=== PATIENT | female | born 1965 | race American Indian/Alaskan Native ===

== ENCOUNTER 2021-09-22 11:03 | Inpatient (IN) | payer MEDICAID ==
--- NOTE | 2021-09-23 08:50 | History and Physical Report ---
GP History & Physical - History of Present Illness Date of admission: 09/23/21 Date of Examination: 09/23/21 Reason for Admission: Danger to self, Danger to others, Failure of Outpatient Treatment Chief Complaint: Suicidal ideation/hallucinations History of Present Illness: The patient is a 56 year old female with history of schizophrenia who was admitted for agitation and suicidal ideation. In my encounter with the patient, she is loud and intrusive. The patient is pacing and responding to internal stimuli " I already know about the blue gloves, I don't hear anything, I'm just going through stuff, don't get it twisted." PAST PSYCHIATRIC HISTORY: Unable to obtain PAST MEDICAL HISTORY: None reported or document Family Psychiatric History: None reported or documented SOCIAL HISTORY Unable to obtain REVIEW OF SYSTEMS Unable to obtain MENTAL STATUS EXAMINATION Unable to obtain Diagnoses: Schizophrenia Treatment Plan Patient admitted for inpatient psychiatric evaluation, medication adjustment and close monitoring The patient's behavior, mood, sleep and appetite will be closely monitored. Patient enrolled in individual and group therapeutic sessions and encouraged to attend. Patient provided with a safe and structured environment. Patient's physical health needs will be addressed by the Hospitalist. Hospitalist Consulted Labs including CBC, CMP, Lipid profile and Hemoglobin A1C levels ordered for baseline reference Social Assessment will be completed and the Assistant Auditor will work with patient and family to ensure a suitable and safe disposition Medication adjustment will be made as clinically indicated Continue home meds Start Zyprexa 5mg po daily Start Zyprexa 10mg po QHS Usual Wellness Hoahaoism/Preservation: - Start Trazodone 50 mg po QHS & 50 mg po QHS PRN between 10 PM & 2 AM for insomnia - Start Melatonin 5 mg po QHS to promote circadian rhythm The patient agreed on the treatment plan, understood the risk, benefit, alternative treatment, potential consequence of no treatment, and gave informed consent. Estimated days: 7 Post hospital care: primary care provider, psychiatric provider Case staffed with Dr. Guillaume Legal Status: Voluntary Reaction to Hospitalization: Accepting Medications and Allergies Medications and Allergies Allergies Allergy/AdvReac Type Severity Reaction Status Date / Time codeine Allergy Unknown Verified 09/23/21 01:27 morphine Allergy Unknown Verified 09/23/21 01:28 Penicillins Allergy Unknown Verified 09/23/21 01:27 Home Medications Medication Instructions Recorded Confirmed Last Taken Type Albuterol Mdi (or & Nicu Only) 2 puff IH QID PRN 09/23/21 09/23/21 Unknown History [ProAir HFA Inhaler] AtorvaSTATin [Lipitor] 40 mg PO QHS 09/23/21 09/23/21 Unknown History Metoprolol Xl [Metoprolol 25 mg PO QDAY 09/23/21 09/23/21 Unknown History SUCCINATE ER TAB] OLANZapine [Zyprexa] 5 mg PO BID 09/23/21 09/23/21 Unknown History Pantoprazole [Protonix] 40 mg PO QDAY 09/23/21 09/23/21 Unknown History Thyroid,Porcine [Thyroid] 30 mg PO QDAY 09/23/21 09/23/21 Unknown History lisinopriL [Lisinopril] 20 mg PO DAILY 09/23/21 09/23/21 Unknown History metFORMIN [Glucophage] 500 mg PO BID 09/23/21 09/23/21 Unknown History Active Meds: Active Medications Nicotine (Nicotine 21 Mg/24 Hr Patch) 21 mg TD QDAY [facility] Results - Results Labs/Vitals: Last Vital Signs Temp 97.3 F L 09/22/21 23:54 Pulse 53 L 09/22/21 23:54 Resp 18 09/22/21 23:54 BP 134/72 09/22/21 23:54 Pulse Ox 100 09/22/21 23:54 Physical Examination - Constitutional Vitals: Vital Signs Temp Pulse Resp BP Pulse Ox 97.3 F L 53 L 18 134/72 100 09/22/21 23:54 09/22/21 23:54 09/22/21 23:54 09/22/21 23:54 09/22/21 23:54 Temperature -Last 24 Hours Temperature 97.3 F Mental Status Exam - Vital signs Last Vital Signs Temp 97.3 F L 09/22/21 23:54 Pulse 53 L 09/22/21 23:54 Resp 18 09/22/21 23:54 BP 134/72 09/22/21 23:54 Pulse Ox 100 09/22/21 23:54 Physician Certification - Certification Statement Physician Certification Statement: This is an acknowledgement statement that STEFANIA BOSS is a 56 year old F who requires inpatient psychiatric admission for treatment which could reasonably be expected to improve the patient's condition for Estimated period of time patient will need to remain in the hospital: [ ] Plan for post-hospital care: [ ]
[2021-09-23] MEDS ORDERED: ALBUTEROL 8.5 GM MDI INHALATION IH PRN (08:53)
[2021-09-23] MEDS ORDERED: WATER FOR INJ Sterile (PF) 10 ML ONE (10:00)
--- NOTE | 2021-09-23 10:31 | Consultation ---
History of Present Illness - Reason for Consult Consult date: 09/23/21 Medical management Requesting physician: ENA AYON - History of Present Illness 56 YO Female with GERD, HTN, Bipolar Disorder, Schizophrenia, FARRAH admitted to [facility] for psychiatric stabilization. Consult placed by Dr. Ayon for medical management. Patient seen and evaluated in the recreation room. Patient remains agitated. No reports of fever, chills, chest pain, palpitation, productive cough, skin rash, recent contact, known exposure to COVID-19. Patient resting comfortably. Patient exhibits tangential thinking. No reported nursing events. Past History Past Medical History: GERD, hypertension Past Surgical History: No surgical history, Other (Reviewed) Social history: single. denies: smoking, alcohol abuse, prescription drug abuse Family history: hypertension Medications and Allergies Allergies Allergy/AdvReac Type Severity Reaction Status Date / Time codeine Allergy Unknown Verified 09/23/21 01:27 morphine Allergy Unknown Verified 09/23/21 01:28 Penicillins Allergy Unknown Verified 09/23/21 01:27 Home Medications Medication Instructions Recorded Confirmed Last Taken Type Albuterol Mdi (or & Nicu Only) 2 puff IH QID PRN 09/23/21 09/23/21 Unknown History [ProAir HFA Inhaler] AtorvaSTATin [Lipitor] 40 mg PO QHS 09/23/21 09/23/21 Unknown History Metoprolol Xl [Metoprolol 25 mg PO QDAY 09/23/21 09/23/21 Unknown History SUCCINATE ER TAB] OLANZapine [Zyprexa] 5 mg PO BID 09/23/21 09/23/21 Unknown History Pantoprazole [Protonix] 40 mg PO QDAY 09/23/21 09/23/21 Unknown History Thyroid,Porcine [Thyroid] 30 mg PO QDAY 09/23/21 09/23/21 Unknown History lisinopriL [Lisinopril] 20 mg PO DAILY 09/23/21 09/23/21 Unknown History metFORMIN [Glucophage] 500 mg PO BID 09/23/21 09/23/21 Unknown History Active Meds: Active Medications Albuterol (Albuterol 2.5 Mg/3 Ml Nebu) 2.5 mg IH QIDRT [facility] Albuterol (Albuterol 2.5 Mg/3 Ml Nebu) 2.5 mg IH Q4HRT PRN PRN Reason: Shortness Of Breath Atorvastatin Calcium (Atorvastatin 40 Mg Tab) 40 mg PO QHS [facility] Lisinopril (Lisinopril 20 Mg Tab) 20 mg PO DAILY [facility] Metformin HCl (Metformin 500 Mg Tab) 500 mg PO BIDDIAB [facility] Metoprolol Succinate (Metoprolol Succinate Xl 25 Mg Tab) 25 mg PO QDAY [facility] Nicotine (Nicotine 21 Mg/24 Hr Patch) 21 mg TD QDAY [facility] Olanzapine (Olanzapine 10 Mg Tab) 10 mg PO QHS [facility] Olanzapine (Olanzapine 5 Mg Tab) 5 mg PO QDAY [facility] Pantoprazole Sodium (Pantoprazole 40 Mg Tab) 40 mg PO QDAY [facility] Thyroid (Thyroid,Porcine 60 Mg Tab) 30 mg PO QDAY [facility] Ziprasidone (Ziprasidone Mesylate 20 Mg Vial) 20 mg IM Q4H PRN PRN Reason: Agitation Review of Systems Constitutional: no weight loss, no weight gain, no fever, no chills Ears, nose, mouth and throat: no ear pain, no ear discharge, no tinnitis, no nasal discharge Breasts: no change in shape, no swelling, no mass Cardiovascular: no chest pain, no orthopnea, no palpitations, no rapid/irregular heart beat, no edema, no syncope Respiratory: no cough, no excessive sputum Gastrointestinal: no abdominal pain, no nausea, no change in bowel habits Genitourinary Female: no pelvic pain, no flank pain, no dysuria, no urinary frequency, no urgency Rectal: no pain, no incontinence, no bleeding Musculoskeletal: no neck stiffness, no shooting leg pain, no redness of joints Integumentary: no rash, no redness, no sores, no wounds, no jaundice Neurological: no head injury, no weakness, no parathesias, no numbness, no tingling Psychiatric: sleep disturbances, paranoia, depression, no anxiety Endocrine: no cold intolerance, no polyphagia, no excessive thirst, no polydipsia, no nocturia, no excessive sweating Hematologic/Lymphatic: no easy bruising, no easy bleeding Allergic/Immunologic: no urticaria, no allergic rhinitis, no wheezing, no persistent infections, no anaphylaxis Exam - Constitutional Vitals: Temp Pulse Resp BP Pulse Ox 97.3 F L 53 L 18 134/72 100 09/22/21 23:54 09/22/21 23:54 09/22/21 23:54 09/22/21 23:54 09/22/21 23:54 General appearance: Present: no acute distress, well-nourished - EENT Eyes: Present: PERRL ENT: hearing intact, clear oral mucosa - Neck Neck: Present: supple, normal ROM - Respiratory Respiratory effort: normal Respiratory: bilateral: CTA - Cardiovascular Heart Sounds: Present: S1 & S2. Absent: rub, click - Extremities Extremities: pulses symmetrical, No edema Peripheral Pulses: within normal limits - Abdominal General gastrointestinal: Present: soft, non-tender, non-distended, normal bowel sounds Female genitourinary: Present: normal - Integumentary Integumentary: Present: clear, warm, dry - Musculoskeletal Musculoskeletal: gait normal, strength equal bilaterally - Psychiatric Psychiatric: appropriate mood/affect, intact judgment & insight - Neurologic Neurologic: CNII-XII intact, moves all extremities Results - Labs CBC & Chem 7: 09/24/21 07:13 09/24/21 07:13 Assessment and Plan - Patient Problems (1) Generalized anxiety disorder Current Visit: Yes Status: Acute Plan to address problem: Benzodiazepine therapy as clinically indicated, supportive care. (2) Schizophrenia Current Visit: Yes Status: Acute Qualifiers: Schizophrenia type: unspecified Qualified Code(s): F20.9 - Schizophrenia, u nspecified Plan to address problem: Continue medical management, supportive care. (3) Hypertension Current Visit: Yes Status: Acute Qualifiers: Hypertension type: primary hypertension Qualified Code(s): I10 - Essential (primary) hypertension Plan to address problem: Monitor blood pressure every shift, continue medical management. (4) GERD (gastroesophageal reflux disease) Current Visit: Yes Status: Acute Qualifiers: Esophagitis presence: without esophagitis Qualified Code(s): K21.9 - G bijan-esophageal reflux disease without esophagitis Plan to address problem: PPI therapy, supportive care. Outpatient GI follow-up. (5) Advance care planning Current Visit: Yes Status: Acute Plan to address problem: Disease education conducted, care plan discussed, diagnoses discussed, prognosis discussed, patient is full code, +30 minutes. (6) Preventative health care Current Visit: Yes Status: Acute Plan to address problem: Patient counseled regarding cognitive behavioral therapy, medication compliance, outpatient follow-up with primary care physician for age and risk factor appropriate screening tests.
[2021-09-23] MEDS: THYROID,PORCINE 60 MG TAB PO SCH (11:00)
[2021-09-23] MEDS: PANTOPRAZOLE 40 MG TAB PO SCH (11:26)
[2021-09-23] MEDS: METOPROLOL SUCCINATE XL 25 MG TAB PO SCH (11:28)
[2021-09-23] MEDS: NICOTINE 21 MG/24 HR PATCH TD SCH (11:28)
[2021-09-23] MEDS: LISINOPRIL 20 MG TAB PO SCH (11:30)
[2021-09-23] MEDS: metFORMIN 500 MG TAB PO SCH ×2 (11:36→16:49)
[2021-09-23] MEDS: ZIPRASIDONE MESYLATE 20 MG VIAL IM PRN (11:38)
[2021-09-23] MEDS ORDERED: ALBUTEROL 2.5 MG/3 ML NEBU IH PRN (12:00)
[2021-09-23] MEDS: ALBUTEROL 2.5 MG/3 ML NEBU IH SCH ×4 (12:38→20:56)
[2021-09-24 07:53] LABS: Basophils % (Auto) 0.3 % (0.0-1.8); Eosinophils # (Auto) 0.2 K/mm3 (0.0-0.4); Eosinophils % (Auto) 1.6 % (0.0-4.3); Hematocrit 40.3 % (30.3-42.9); Hemoglobin 13.1 gm/dl (10.1-14.3); Lymphocytes # (Auto) 3.5 K/mm3 (1.2-5.4); Lymphocytes % (Auto) 33.9 % (13.4-35.0); Mean Corpuscular HGB Conc 33 % (30-34); Mean Corpuscular Volume 85 fl (79-97); Monocytes # (Auto) 0.6 K/mm3 (0.0-0.8); Monocytes % (Auto) 6.3 % (0.0-7.3); Red Blood Count 4.76 M/mm3 (3.65-5.03); Red Cell Distribution Width 13.8 % (13.2-15.2)
[2021-09-24 07:54] LABS: Platelet Count 128 K/mm3 (140-440)
[2021-09-24 08:11] LABS: Alanine Aminotransferase 18 units/L (7-56); Albumin 3.9 g/dL (3.9-5); BUN/Creatinine Ratio 25; Blood Urea Nitrogen 20 mg/dL (7-17); Calcium 9.3 mg/dL (8.4-10.2); Chol/HDL Ratio 2.05 %; HDL Cholesterol 68 mg/dL (40-59); Hemolysis Index 8; LDL Cholesterol,Direct 53 mg/dL (50-130)
[2021-09-24] MEDS: metFORMIN 500 MG TAB PO SCH ×2 (08:16→16:16)
[2021-09-24] MEDS: ALBUTEROL 2.5 MG/3 ML NEBU IH SCH ×3 (08:50→20:04)
[2021-09-24] MEDS: NICOTINE 21 MG/24 HR PATCH TD SCH (09:50)
[2021-09-24] MEDS: PANTOPRAZOLE 40 MG TAB PO SCH (09:50)
--- NOTE | 2021-09-24 09:59 | Progress Note ---
Subjective Date of service: 09/24/21 Subjective Comment: 09/24: The patient was seen this morning. The patient continues to be disorganized and responding to internal stimuli. No changes made today. REVIEW OF SYSTEMS Unable to obtain MENTAL STATUS EXAMINATION Unable to obtain Diagnoses: Schizophrenia Treatment Plan Patient admitted for inpatient psychiatric evaluation, medication adjustment and close monitoring The patient's behavior, mood, sleep and appetite will be closely monitored. Patient enrolled in individual and group therapeutic sessions and encouraged to attend. Patient provided with a safe and structured environment. Patient's physical health needs will be addressed by the Hospitalist. Hospitalist Consulted Labs including CBC, CMP, Lipid profile and Hemoglobin A1C levels ordered for baseline reference Social Assessment will be completed and the Software Integration Developer will work with patient and family to ensure a suitable and safe disposition Medication adjustment will be made as clinically indicated Continue home meds Start Zyprexa 5mg po daily Start Zyprexa 10mg po QHS Usual Wellness Holiness/Preservation: - Start Trazodone 50 mg po QHS & 50 mg po QHS PRN between 10 PM & 2 AM for insomnia - Start Melatonin 5 mg po QHS to promote circadian rhythm The patient agreed on the treatment plan, understood the risk, benefit, alternative treatment, potential consequence of no treatment, and gave informed consent. Estimated days: 7 Post hospital care: primary care provider, psychiatric provider Case staffed with Dr. Guillaume Legal Status: Voluntary Reaction to Hospitalization: Accepting Medications and Allergies Medications and Allergies Allergies Allergy/AdvReac Type Severity Reaction Status Date / Time codeine Allergy Unknown Verified 09/23/21 01:27 morphine Allergy Unknown Verified 09/23/21 01:28 Penicillins Allergy Unknown Verified 09/23/21 01:27 Home Medications Medication Instructions Recorded Confirmed Last Taken Type Albuterol Mdi (or & Nicu Only) 2 puff IH QID PRN 09/23/21 09/23/21 Unknown History [ProAir HFA Inhaler] AtorvaSTATin [Lipitor] 40 mg PO QHS 09/23/21 09/23/21 Unknown History Metoprolol Xl [Metoprolol 25 mg PO QDAY 09/23/21 09/23/21 Unknown History SUCCINATE ER TAB] OLANZapine [Zyprexa] 5 mg PO BID 09/23/21 09/23/21 Unknown History Pantoprazole [Protonix] 40 mg PO QDAY 09/23/21 09/23/21 Unknown History Thyroid,Porcine [Thyroid] 30 mg PO QDAY 09/23/21 09/23/21 Unknown History lisinopriL [Lisinopril] 20 mg PO DAILY 09/23/21 09/23/21 Unknown History metFORMIN [Glucophage] 500 mg PO BID 09/23/21 09/23/21 Unknown History Active Meds: Active Medications Albuterol (Albuterol 2.5 Mg/3 Ml Nebu) 2.5 mg IH Q4HRT PRN PRN Reason: Shortness Of Breath Albuterol (Albuterol 2.5 Mg/3 Ml Nebu) 2.5 mg IH TIDRT [facility] Atorvastatin Calcium (Atorvastatin 40 Mg Tab) 40 mg PO QHS [facility] Last Admin: 09/23/21 21:06 Dose: 40 mg Lisinopril (Lisinopril 20 Mg Tab) 20 mg PO DAILY [facility] Last Admin: 09/23/21 11:30 Dose: Not Given Metformin HCl (Metformin 500 Mg Tab) 500 mg PO BIDDIAB [facility] Last Admin: 09/24/21 08:16 Dose: Not Given Metoprolol Succinate (Metoprolol Succinate Xl 25 Mg Tab) 25 mg PO QDAY [facility] Last Admin: 09/23/21 11:28 Dose: Not Given Nicotine (Nicotine 21 Mg/24 Hr Patch) 21 mg TD QDAY [facility] Last Admin: 09/24/21 09:50 Dose: 21 mg Olanzapine (Olanzapine 10 Mg Tab) 10 mg PO QHS [facility] Last Admin: 09/23/21 21:06 Dose: 10 mg Olanzapine (Olanzapine 5 Mg Tab) 5 mg PO QDAY [facility] Last Admin: 09/24/21 09:50 Dose: 5 mg Pantoprazole Sodium (Pantoprazole 40 Mg Tab) 40 mg PO QDAY [facility] Last Admin: 09/24/21 09:50 Dose: 40 mg Thyroid (Thyroid,Porcine 60 Mg Tab) 30 mg PO QDAY [facility] Last Admin: 09/23/21 11:00 Dose: 30 mg Ziprasidone (Ziprasidone Mesylate 20 Mg Vial) 20 mg IM Q4H PRN PRN Reason: Agitation Last Admin: 09/23/21 11:38 Dose: 20 mg Results - Results Labs/Vitals: Laboratory Last Values WBC 10.2 K/mm3 (4.5-11.0) 09/24/21 07:13 RBC 4.76 M/mm3 (3.65-5.03) 09/24/21 07:13 Hgb 13.1 gm/dl (10.1-14.3) 09/24/21 07:13 Hct 40.3 % (30.3-42.9) 09/24/21 07:13 MCV 85 fl (79-97) 09/24/21 07:13 MCH 28 pg (28-32) 09/24/21 07:13 MCHC 33 % (30-34) 09/24/21 07:13 RDW 13.8 % (13.2-15.2) 09/24/21 07:13 Plt Count 128 K/mm3 (140-440) L 09/24/21 07:13 Lymph % (Auto) 33.9 % (13.4-35.0) 09/24/21 07:13 [place] % (Auto) 6.3 % (0.0-7.3) 09/24/21 07:13 Eos % (Auto) 1.6 % (0.0-4.3) 09/24/21 07:13 Baso % (Auto) 0.3 % (0.0-1.8) 09/24/21 07:13 Lymph # (Auto) 3.5 K/mm3 (1.2-5.4) 09/24/21 07:13 [place] # (Auto) 0.6 K/mm3 (0.0-0.8) 09/24/21 07:13 Eos # (Auto) 0.2 K/mm3 (0.0-0.4) 09/24/21 07:13 Baso # (Auto) 0.0 K/mm3 (0.0-0.1) 09/24/21 07:13 Seg Neutrophils % 57.9 % (40.0-70.0) 09/24/21 07:13 Seg Neutrophils # 5.9 K/mm3 (1.8-7.7) 09/24/21 07:13 Sodium 139 mmol/L (137-145) 09/24/21 07:13 Potassium 4.5 mmol/L (3.6-5.0) 09/24/21 07:13 Chloride 105.7 mmol/L (98-107) 09/24/21 07:13 Carbon Dioxide 26 mmol/L (22-30) 09/24/21 07:13 Anion Gap 12 mmol/L 09/24/21 07:13 BUN 20 mg/dL (7-17) H 09/24/21 07:13 Creatinine 0.8 mg/dL (0.6-1.2) 09/24/21 07:13 Estimated GFR > 60 ml/min 09/24/21 07:13 BUN/Creatinine Ratio 25 % 09/24/21 07:13 Glucose 84 mg/dL (65-100) 09/24/21 07:13 Hemoglobin A1c 5.3 % (4-6) 09/24/21 07:13 Calcium 9.3 mg/dL (8.4-10.2) 09/24/21 07:13 Total Bilirubin < 0.20 mg/dL (0.1-1.2) 09/24/21 07:13 AST 17 units/L (5-40) 09/24/21 07:13 ALT 18 units/L (7-56) 09/24/21 07:13 Alkaline Phosphatase 119 units/L (35-129) 09/24/21 07:13 Total Protein 6.1 g/dL (6.3-8.2) L 09/24/21 07:13 Albumin 3.9 g/dL (3.9-5) 09/24/21 07:13 Albumin/Globulin Ratio 1.8 % 09/24/21 07:13 Triglycerides 117 mg/dL (2-149) 09/24/21 07:13 Cholesterol 140 mg/dL (50-199) 09/24/21 07:13 LDL Cholesterol Direct 53 mg/dL (50-130) 09/24/21 07:13 HDL Cholesterol 68 mg/dL (40-59) H 09/24/21 07:13 Cholesterol/HDL Ratio 2.05 % 09/24/21 07:13 TSH 0.751 mlU/mL (0.270-4.200) 09/24/21 07:13 Last Vital Signs Temp 97.5 F L 09/24/21 09:25 Pulse 75 09/24/21 09:25 Resp 16 09/24/21 09:25 BP 119/71 09/24/21 09:25 Pulse Ox 99 09/24/21 09:25
[2021-09-24] MEDS: THYROID,PORCINE 60 MG TAB PO SCH (10:16)
[2021-09-24] MEDS: METOPROLOL SUCCINATE XL 25 MG TAB PO SCH (10:16)
[2021-09-24] MEDS: LISINOPRIL 20 MG TAB PO SCH (10:16)
[2021-09-24 12:27] LABS: Hepatitis B Surface Antigen Non-Reactive (Negative); Hepatitis C Virus Antibody Non-Reactive (NonReactive)
--- NOTE | 2021-09-25 08:54 | Progress Note ---
Subjective Date of service: 09/25/21 Subjective Comment: 09/25: The patient was seen this morning. She states she is doing well. The patient continues to be disorganized and responding to internal stimuli. Increased Zyprexa 10mg po BID, Start Depakote 250mg po BID 09/24: The patient was seen this morning. The patient continues to be disorganized and responding to internal stimuli. No changes made today. REVIEW OF SYSTEMS Unable to obtain MENTAL STATUS EXAMINATION Unable to obtain Diagnoses: Schizophrenia Treatment Plan Patient admitted for inpatient psychiatric evaluation, medication adjustment and close monitoring The patient's behavior, mood, sleep and appetite will be closely monitored. Patient enrolled in individual and group therapeutic sessions and encouraged to attend. Patient provided with a safe and structured environment. Patient's physical health needs will be addressed by the Hospitalist. Hospitalist Consulted Labs including CBC, CMP, Lipid profile and Hemoglobin A1C levels ordered for baseline reference Social Assessment will be completed and the Aluminum Container Tester will work with patient and family to ensure a suitable and safe disposition Medication adjustment will be made as clinically indicated Continue home meds Start Zyprexa 10mg po BID Start Depakote 250mg po BID Usual Wellness Sabianist/Preservation: - Start Trazodone 50 mg po QHS & 50 mg po QHS PRN between 10 PM & 2 AM for insomnia - Start Melatonin 5 mg po QHS to promote circadian rhythm The patient agreed on the treatment plan, understood the risk, benefit, alternative treatment, potential consequence of no treatment, and gave informed consent. Estimated days: 7 Post hospital care: primary care provider, psychiatric provider Case staffed with Dr. Guillaume Legal Status: Voluntary Reaction to Hospitalization: Accepting Medications and Allergies Medications and Allergies Allergies Allergy/AdvReac Type Severity Reaction Status Date / Time codeine Allergy Unknown Verified 09/23/21 01:27 morphine Allergy Unknown Verified 09/23/21 01:28 Penicillins Allergy Unknown Verified 09/23/21 01:27 Home Medications Medication Instructions Recorded Confirmed Last Taken Type Albuterol Mdi (or & Nicu Only) 2 puff IH QID PRN 09/23/21 09/23/21 Unknown History [ProAir HFA Inhaler] AtorvaSTATin [Lipitor] 40 mg PO QHS 09/23/21 09/23/21 Unknown History Metoprolol Xl [Metoprolol 25 mg PO QDAY 09/23/21 09/23/21 Unknown History SUCCINATE ER TAB] OLANZapine [Zyprexa] 5 mg PO BID 09/23/21 09/23/21 Unknown History Pantoprazole [Protonix] 40 mg PO QDAY 09/23/21 09/23/21 Unknown History Thyroid,Porcine [Thyroid] 30 mg PO QDAY 09/23/21 09/23/21 Unknown History lisinopriL [Lisinopril] 20 mg PO DAILY 09/23/21 09/23/21 Unknown History metFORMIN [Glucophage] 500 mg PO BID 09/23/21 09/23/21 Unknown History Active Meds: Active Medications Albuterol (Albuterol 2.5 Mg/3 Ml Nebu) 2.5 mg IH Q4HRT PRN PRN Reason: Shortness Of Breath Albuterol (Albuterol 2.5 Mg/3 Ml Nebu) 2.5 mg IH TIDRT [facility] Last Admin: 09/24/21 20:04 Dose: Not Given Atorvastatin Calcium (Atorvastatin 40 Mg Tab) 40 mg PO QHS [facility] Last Admin: 09/24/21 22:55 Dose: Not Given Lisinopril (Lisinopril 20 Mg Tab) 20 mg PO DAILY [facility] Last Admin: 09/24/21 10:16 Dose: Not Given Metformin HCl (Metformin 500 Mg Tab) 500 mg PO BIDDIAB [facility] Last Admin: 09/24/21 16:16 Dose: Not Given Metoprolol Succinate (Metoprolol Succinate Xl 25 Mg Tab) 25 mg PO QDAY [facility] Last Admin: 09/24/21 10:16 Dose: Not Given Nicotine (Nicotine 21 Mg/24 Hr Patch) 21 mg TD QDAY [facility] Last Admin: 09/24/21 09:50 Dose: 21 mg Olanzapine (Olanzapine 10 Mg Tab) 10 mg PO QHS [facility] Last Admin: 09/24/21 22:55 Dose: Not Given Olanzapine (Olanzapine 5 Mg Tab) 5 mg PO QDAY [facility] Last Admin: 09/24/21 09:50 Dose: 5 mg Pantoprazole Sodium (Pantoprazole 40 Mg Tab) 40 mg PO QDAY [facility] Last Admin: 09/24/21 09:50 Dose: 40 mg Thyroid (Thyroid,Porcine 60 Mg Tab) 30 mg PO QDAY [facility] Last Admin: 09/24/21 10:16 Dose: Not Given Ziprasidone (Ziprasidone Mesylate 20 Mg Vial) 20 mg IM Q4H PRN PRN Reason: Agitation Last Admin: 09/23/21 11:38 Dose: 20 mg Results - Results Labs/Vitals: Laboratory Last Values WBC 10.2 K/mm3 (4.5-11.0) 09/24/21 07:13 RBC 4.76 M/mm3 (3.65-5.03) 09/24/21 07:13 Hgb 13.1 gm/dl (10.1-14.3) 09/24/21 07:13 Hct 40.3 % (30.3-42.9) 09/24/21 07:13 MCV 85 fl (79-97) 09/24/21 07:13 MCH 28 pg (28-32) 09/24/21 07:13 MCHC 33 % (30-34) 09/24/21 07:13 RDW 13.8 % (13.2-15.2) 09/24/21 07:13 Plt Count 128 K/mm3 (140-440) L 09/24/21 07:13 Lymph % (Auto) 33.9 % (13.4-35.0) 09/24/21 07:13 [place] % (Auto) 6.3 % (0.0-7.3) 09/24/21 07:13 Eos % (Auto) 1.6 % (0.0-4.3) 09/24/21 07:13 Baso % (Auto) 0.3 % (0.0-1.8) 09/24/21 07:13 Lymph # (Auto) 3.5 K/mm3 (1.2-5.4) 09/24/21 07:13 [place] # (Auto) 0.6 K/mm3 (0.0-0.8) 09/24/21 07:13 Eos # (Auto) 0.2 K/mm3 (0.0-0.4) 09/24/21 07:13 Baso # (Auto) 0.0 K/mm3 (0.0-0.1) 09/24/21 07:13 Seg Neutrophils % 57.9 % (40.0-70.0) 09/24/21 07:13 Seg Neutrophils # 5.9 K/mm3 (1.8-7.7) 09/24/21 07:13 Sodium 139 mmol/L (137-145) 09/24/21 07:13 Potassium 4.5 mmol/L (3.6-5.0) 09/24/21 07:13 Chloride 105.7 mmol/L (98-107) 09/24/21 07:13 Carbon Dioxide 26 mmol/L (22-30) 09/24/21 07:13 Anion Gap 12 mmol/L 09/24/21 07:13 BUN 20 mg/dL (7-17) H 09/24/21 07:13 Creatinine 0.8 mg/dL (0.6-1.2) 09/24/21 07:13 Estimated GFR > 60 ml/min 09/24/21 07:13 BUN/Creatinine Ratio 25 % 09/24/21 07:13 Glucose 84 mg/dL (65-100) 09/24/21 07:13 POC Glucose 102 mg/dL (70-105) 09/24/21 06:42 Hemoglobin A1c 5.3 % (4-6) 09/24/21 07:13 Calcium 9.3 mg/dL (8.4-10.2) 09/24/21 07:13 Total Bilirubin < 0.20 mg/dL (0.1-1.2) 09/24/21 07:13 AST 17 units/L (5-40) 09/24/21 07:13 ALT 18 units/L (7-56) 09/24/21 07:13 Alkaline Phosphatase 119 units/L (35-129) 09/24/21 07:13 Total Protein 6.1 g/dL (6.3-8.2) L 09/24/21 07:13 Albumin 3.9 g/dL (3.9-5) 09/24/21 07:13 Albumin/Globulin Ratio 1.8 % 09/24/21 07:13 Triglycerides 117 mg/dL (2-149) 09/24/21 07:13 Cholesterol 140 mg/dL (50-199) 09/24/21 07:13 LDL Cholesterol Direct 53 mg/dL (50-130) 09/24/21 07:13 HDL Cholesterol 68 mg/dL (40-59) H 09/24/21 07:13 Cholesterol/HDL Ratio 2.05 % 09/24/21 07:13 TSH 0.751 mlU/mL (0.270-4.200) 09/24/21 07:13 Hepatitis A IgM Ab Non-reactive (NonReactive) 09/24/21 07:13 Hep Bs Antigen Non-reactive (Negative) 09/24/21 07:13 Hep B Core IgM Ab Non-reactive (NonReactive) 09/24/21 07:13 Hepatitis C Antibody Non-reactive (NonReactive) 09/24/21 07:13 Last Vital Signs Temp 98.6 F 09/24/21 19:00 Pulse 84 09/24/21 19:00 Resp 18 09/24/21 19:00 BP 129/87 09/24/21 19:00 Pulse Ox 92 09/24/21 19:00
[2021-09-25] MEDS: ALBUTEROL 2.5 MG/3 ML NEBU IH SCH ×4 (10:24→21:07)
[2021-09-25] MEDS: NICOTINE 21 MG/24 HR PATCH TD SCH (10:54)
[2021-09-25] MEDS: LISINOPRIL 20 MG TAB PO SCH (10:56)
[2021-09-25] MEDS: metFORMIN 500 MG TAB PO SCH ×2 (11:01→18:19)
[2021-09-25] MEDS: PANTOPRAZOLE 40 MG TAB PO SCH (11:02)
[2021-09-25] MEDS: THYROID,PORCINE 60 MG TAB PO SCH (11:03)
[2021-09-25] MEDS: METOPROLOL SUCCINATE XL 25 MG TAB PO SCH (11:04)
--- NOTE | 2021-09-25 12:40 | Progress Note ---
Assessment and Plan - Patient Problems (1) Generalized anxiety disorder Current Visit: Yes Status: Acute Plan to address problem: Benzodiazepine therapy as clinically indicated, supportive care. (2) Schizophrenia Current Visit: Yes Status: Acute Qualifiers: Schizophrenia type: unspecified Qualified Code(s): F20.9 - Schizophrenia, unspecified Plan to address problem: Continue medical management, supportive care. (3) Hypertension Current Visit: Yes Status: Acute Qualifiers: Hypertension type: primary hypertension Qualified Code(s): I10 - Essential (primary) hypertension Plan to address problem: Monitor blood pressure every shift, continue medical management. (4) GERD (gastroesophageal reflux disease) Current Visit: Yes Status: Acute Qualifiers: Esophagitis presence: without esophagitis Qualified Code(s): K21.9 - Gastro-esophageal reflux disease without esophagitis Plan to address problem: PPI therapy, supportive care. Outpatient GI follow-up. (5) Advance care planning Current Visit: Yes Status: Acute Plan to address problem: Disease education conducted, care plan discussed, diagnoses discussed, prognosis discussed, patient is full code, +30 minutes. (6) Preventative health care Current Visit: Yes Status: Acute Plan to address problem: Patient counseled regarding cognitive behavioral therapy, medication compliance, outpatient follow-up with primary care physician for age and risk factor appropriate screening tests. History Interval history: 56 YO Female with GERD, HTN, Bipolar Disorder, Schizophrenia, FARRAH admitted to [facility] for psychiatric stabilization. Consult placed by Dr. Arredondo for medical management. Patient seen and evaluated in the recreation room. Patient exhibits continued tangential thinking. No reported nursing events. Hospitalist Physical - Constitutional Vitals: Temp Pulse Resp BP Pulse Ox 98.6 F 90 18 129/87 92 09/24/21 19:00 09/25/21 11:04 09/25/21 10:25 09/24/21 19:00 09/24/21 19:00 General appearance: Present: no acute distress, well-nourished - EENT Eyes: Present: PERRL ENT: hearing intact - Neck Neck: Present: supple - Respiratory Respiratory effort: normal Respiratory: bilateral: CTA - Cardiovascular Rhythm: regular Heart Sounds: Present: S1 & S2 - Extremities Extremities: no ischemia Peripheral Pulses: within normal limits - Abdominal General gastrointestinal: soft, non-tender, non-distended - Integumentary Integumentary: Present: clear, dry - Psychiatric Psychiatric: cooperative - Neurologic Neurologic: CNII-XII intact Results - Labs CBC & Chem 7: 09/24/21 07:13 09/24/21 07:13 Labs: Laboratory Last Values WBC 10.2 K/mm3 (4.5-11.0) 09/24/21 07:13 RBC 4.76 M/mm3 (3.65-5.03) 09/24/21 07:13 Hgb 13.1 gm/dl (10.1-14.3) 09/24/21 07:13 Hct 40.3 % (30.3-42.9) 09/24/21 07:13 MCV 85 fl (79-97) 09/24/21 07:13 MCH 28 pg (28-32) 09/24/21 07:13 MCHC 33 % (30-34) 09/24/21 07:13 RDW 13.8 % (13.2-15.2) 09/24/21 07:13 Plt Count 128 K/mm3 (140-440) L 09/24/21 07:13 Lymph % (Auto) 33.9 % (13.4-35.0) 09/24/21 07:13 [place] % (Auto) 6.3 % (0.0-7.3) 09/24/21 07:13 Eos % (Auto) 1.6 % (0.0-4.3) 09/24/21 07:13 Baso % (Auto) 0.3 % (0.0-1.8) 09/24/21 07:13 Lymph # (Auto) 3.5 K/mm3 (1.2-5.4) 09/24/21 07:13 [place] # (Auto) 0.6 K/mm3 (0.0-0.8) 09/24/21 07:13 Eos # (Auto) 0.2 K/mm3 (0.0-0.4) 09/24/21 07:13 Baso # (Auto) 0.0 K/mm3 (0.0-0.1) 09/24/21 07:13 Seg Neutrophils % 57.9 % (40.0-70.0) 09/24/21 07:13 Seg Neutrophils # 5.9 K/mm3 (1.8-7.7) 09/24/21 07:13 Sodium 139 mmol/L (137-145) 09/24/21 07:13 Potassium 4.5 mmol/L (3.6-5.0) 09/24/21 07:13 Chloride 105.7 mmol/L (98-107) 09/24/21 07:13 Carbon Dioxide 26 mmol/L (22-30) 09/24/21 07:13 Anion Gap 12 mmol/L 09/24/21 07:13 BUN 20 mg/dL (7-17) H 09/24/21 07:13 Creatinine 0.8 mg/dL (0.6-1.2) 09/24/21 07:13 Estimated GFR > 60 ml/min 09/24/21 07:13 BUN/Creatinine Ratio 25 % 09/24/21 07:13 Glucose 84 mg/dL (65-100) 09/24/21 07:13 POC Glucose 102 mg/dL (70-105) 09/24/21 06:42 Hemoglobin A1c 5.3 % (4-6) 09/24/21 07:13 Calcium 9.3 mg/dL (8.4-10.2) 09/24/21 07:13 Total Bilirubin < 0.20 mg/dL (0.1-1.2) 09/24/21 07:13 AST 17 units/L (5-40) 09/24/21 07:13 ALT 18 units/L (7-56) 09/24/21 07:13 Alkaline Phosphatase 119 units/L (35-129) 09/24/21 07:13 Total Protein 6.1 g/dL (6.3-8.2) L 09/24/21 07:13 Albumin 3.9 g/dL (3.9-5) 09/24/21 07:13 Albumin/Globulin Ratio 1.8 % 09/24/21 07:13 Triglycerides 117 mg/dL (2-149) 09/24/21 07:13 Cholesterol 140 mg/dL (50-199) 09/24/21 07:13 LDL Cholesterol Direct 53 mg/dL (50-130) 09/24/21 07:13 HDL Cholesterol 68 mg/dL (40-59) H 09/24/21 07:13 Cholesterol/HDL Ratio 2.05 % 09/24/21 07:13 TSH 0.751 mlU/mL (0.270-4.200) 09/24/21 07:13 Hepatitis A IgM Ab Non-reactive (NonReactive) 09/24/21 07:13 Hep Bs Antigen Non-reactive (Negative) 09/24/21 07:13 Hep B Core IgM Ab Non-reactive (NonReactive) 09/24/21 07:13 Hepatitis C Antibody Non-reactive (NonReactive) 09/24/21 07:13 Wright/IV: Voiding Method Toilet Active Medications - Current Medications Current Medications: Generic Name Dose Route Start Last Admin Trade Name Freq PRN Reason Stop Dose Admin Albuterol 2.5 mg 09/23/21 12:00 Albuterol 2.5 Mg/3 Ml Nebu IH Q4HRT PRN Shortness Of Breath Albuterol 2.5 mg 09/25/21 12:00 09/25/21 10:24 Albuterol 2.5 Mg/3 Ml Nebu IH 2.5 mg BIDRT ALYSSIA Administration Atorvastatin Calcium 40 mg 09/23/21 22:00 09/24/21 22:55 Atorvastatin 40 Mg Tab PO Not Given QHS ALYSSIA Divalproex Sodium 250 mg 09/25/21 12:[address] 250 Mg Tab PO BID ALYSSIA Lisinopril 20 mg 09/23/21 10:00 09/25/21 10:56 Lisinopril 20 Mg Tab PO 20 mg DAILY ALYSSIA Administration Metformin HCl 500 mg 09/23/21 10:00 09/25/21 11:01 Metformin 500 Mg Tab PO 500 mg BIDDIAB ALYSSIA Administration Metoprolol Succinate 25 mg 09/23/21 10:00 09/25/21 11:04 Metoprolol Succinate Xl 25 Mg Tab PO 25 mg QDAY ALYSSIA Administration Nicotine 21 mg 09/23/21 10:00 09/25/21 10:54 Nicotine 21 Mg/24 Hr Patch TD 21 mg QDAY ALYSSIA Administration Olanzapine 10 mg 09/25/21 12:00 Olanzapine 10 Mg Tab PO BID ALYSSIA Pantoprazole Sodium 40 mg 09/23/21 10:00 09/25/21 11:02 Pantoprazole 40 Mg Tab PO 40 mg QDAY ALYSSIA Administration Thyroid 30 mg 09/23/21 10:00 09/25/21 11:03 Thyroid,Porcine 60 Mg Tab PO 30 mg QDAY ALYSSIA Administration Ziprasidone 20 mg 09/23/21 09:30 09/23/21 11:38 Ziprasidone Mesylate 20 Mg Vial IM 20 mg Q4H PRN Administration Agitation
[2021-09-25] MEDS: DIVALPROEX DR 250 MG TAB PO SCH ×2 (18:19→21:53)
[2021-09-26] MEDS: ALBUTEROL 2.5 MG/3 ML NEBU IH SCH (08:31)
[2021-09-26] MEDS: PANTOPRAZOLE 40 MG TAB PO SCH (09:32)
[2021-09-26] MEDS: DIVALPROEX DR 250 MG TAB PO SCH ×2 (09:32→22:12)
[2021-09-26] MEDS: metFORMIN 500 MG TAB PO SCH ×2 (09:32→16:24)
[2021-09-26] MEDS: METOPROLOL SUCCINATE XL 25 MG TAB PO SCH (09:34)
[2021-09-26] MEDS: NICOTINE 21 MG/24 HR PATCH TD SCH (09:34)
[2021-09-26] MEDS: LISINOPRIL 20 MG TAB PO SCH (09:35)
[2021-09-26] MEDS: THYROID,PORCINE 60 MG TAB PO SCH (09:35)
--- NOTE | 2021-09-26 09:36 | Progress Note ---
Subjective Date of service: 09/26/21 Subjective Comment: 09/26: The patient was seen this morning. She continues to be labile and loud. The patient presents with flight of ideas. No changes made today. 09/25: The patient was seen this morning. She states she is doing well. The patient continues to be disorganized and responding to internal stimuli. Increased Zyprexa 10mg po BID, Start Depakote 250mg po BID 09/24: The patient was seen this morning. The patient continues to be disorganized and responding to internal stimuli. No changes made today. REVIEW OF SYSTEMS Unable to obtain MENTAL STATUS EXAMINATION Unable to obtain Diagnoses: Schizophrenia Treatment Plan Patient admitted for inpatient psychiatric evaluation, medication adjustment and close monitoring The patient's behavior, mood, sleep and appetite will be closely monitored. Patient enrolled in individual and group therapeutic sessions and encouraged to attend. Patient provided with a safe and structured environment. Patient's physical health needs will be addressed by the Hospitalist. Hospitalist Consulted Labs including CBC, CMP, Lipid profile and Hemoglobin A1C levels ordered for baseline reference Social Assessment will be completed and the [facility] will work with patient and family to ensure a suitable and safe disposition Medication adjustment will be made as clinically indicated Continue home meds Start Zyprexa 10mg po BID Start Depakote 250mg po BID Usual Wellness Druze/Preservation: - Start Trazodone 50 mg po QHS & 50 mg po QHS PRN between 10 PM & 2 AM for insomnia - Start Melatonin 5 mg po QHS to promote circadian rhythm The patient agreed on the treatment plan, understood the risk, benefit, alternative treatment, potential consequence of no treatment, and gave informed consent. Estimated days: 7 Post hospital care: primary care provider, psychiatric provider Case staffed with Dr. Guillaume Legal Status: Voluntary Reaction to Hospitalization: Accepting Medications and Allergies Medications and Allergies Allergies Allergy/AdvReac Type Severity Reaction Status Date / Time codeine Allergy Unknown Verified 09/23/21 01:27 morphine Allergy Unknown Verified 09/23/21 01:28 Penicillins Allergy Unknown Verified 09/23/21 01:27 Home Medications Medication Instructions Recorded Confirmed Last Taken Type Albuterol Mdi (or & Nicu Only) 2 puff IH QID PRN 09/23/21 09/23/21 Unknown History [ProAir HFA Inhaler] AtorvaSTATin [Lipitor] 40 mg PO QHS 09/23/21 09/23/21 Unknown History Metoprolol Xl [Metoprolol 25 mg PO QDAY 09/23/21 09/23/21 Unknown History SUCCINATE ER TAB] OLANZapine [Zyprexa] 5 mg PO BID 09/23/21 09/23/21 Unknown History Pantoprazole [Protonix] 40 mg PO QDAY 09/23/21 09/23/21 Unknown History Thyroid,Porcine [Thyroid] 30 mg PO QDAY 09/23/21 09/23/21 Unknown History lisinopriL [Lisinopril] 20 mg PO DAILY 09/23/21 09/23/21 Unknown History metFORMIN [Glucophage] 500 mg PO BID 09/23/21 09/23/21 Unknown History Active Meds: Active Medications Albuterol (Albuterol 2.5 Mg/3 Ml Nebu) 2.5 mg IH Q4HRT PRN PRN Reason: Shortness Of Breath Albuterol (Albuterol 2.5 Mg/3 Ml Nebu) 2.5 mg IH BIDRT [facility] Last Admin: 09/26/21 08:31 Dose: 2.5 mg Atorvastatin Calcium (Atorvastatin 40 Mg Tab) 40 mg PO QHS [facility] Last Admin: 09/25/21 21:53 Dose: 40 mg Divalproex Sodium (Divalproex Dr 250 Mg Tab) 250 mg PO BID [facility] Last Admin: 09/25/21 21:53 Dose: 250 mg Lisinopril (Lisinopril 20 Mg Tab) 20 mg PO DAILY [facility] Last Admin: 09/25/21 10:56 Dose: 20 mg Metformin HCl (Metformin 500 Mg Tab) 500 mg PO BIDDIAB [facility] Last Admin: 09/25/21 18:19 Dose: 500 mg Metoprolol Succinate (Metoprolol Succinate Xl 25 Mg Tab) 25 mg PO QDAY [facility] Last Admin: 09/25/21 11:04 Dose: 25 mg Nicotine (Nicotine 21 Mg/24 Hr Patch) 21 mg TD QDAY [facility] Last Admin: 09/25/21 10:54 Dose: 21 mg Olanzapine (Olanzapine 10 Mg Tab) 10 mg PO BID [facility] Last Admin: 09/25/21 21:53 Dose: 10 mg Pantoprazole Sodium (Pantoprazole 40 Mg Tab) 40 mg PO QDAY [facility] Last Admin: 09/25/21 11:02 Dose: 40 mg Thyroid (Thyroid,Porcine 60 Mg Tab) 30 mg PO QDAY [facility] Last Admin: 09/25/21 11:03 Dose: 30 mg Ziprasidone (Ziprasidone Mesylate 20 Mg Vial) 20 mg IM Q4H PRN PRN Reason: Agitation Last Admin: 09/23/21 11:38 Dose: 20 mg Results - Results Labs/Vitals: Laboratory Last Values WBC 10.2 K/mm3 (4.5-11.0) 09/24/21 07:13 RBC 4.76 M/mm3 (3.65-5.03) 09/24/21 07:13 Hgb 13.1 gm/dl (10.1-14.3) 09/24/21 07:13 Hct 40.3 % (30.3-42.9) 09/24/21 07:13 MCV 85 fl (79-97) 09/24/21 07:13 MCH 28 pg (28-32) 09/24/21 07:13 MCHC 33 % (30-34) 09/24/21 07:13 RDW 13.8 % (13.2-15.2) 09/24/21 07:13 Plt Count 128 K/mm3 (140-440) L 09/24/21 07:13 Lymph % (Auto) 33.9 % (13.4-35.0) 09/24/21 07:13 [place] % (Auto) 6.3 % (0.0-7.3) 09/24/21 07:13 Eos % (Auto) 1.6 % (0.0-4.3) 09/24/21 07:13 Baso % (Auto) 0.3 % (0.0-1.8) 09/24/21 07:13 Lymph # (Auto) 3.5 K/mm3 (1.2-5.4) 09/24/21 07:13 [place] # (Auto) 0.6 K/mm3 (0.0-0.8) 09/24/21 07:13 Eos # (Auto) 0.2 K/mm3 (0.0-0.4) 09/24/21 07:13 Baso # (Auto) 0.0 K/mm3 (0.0-0.1) 09/24/21 07:13 Seg Neutrophils % 57.9 % (40.0-70.0) 09/24/21 07:13 Seg Neutrophils # 5.9 K/mm3 (1.8-7.7) 09/24/21 07:13 Sodium 139 mmol/L (137-145) 09/24/21 07:13 Potassium 4.5 mmol/L (3.6-5.0) 09/24/21 07:13 Chloride 105.7 mmol/L (98-107) 09/24/21 07:13 Carbon Dioxide 26 mmol/L (22-30) 09/24/21 07:13 Anion Gap 12 mmol/L 09/24/21 07:13 BUN 20 mg/dL (7-17) H 09/24/21 07:13 Creatinine 0.8 mg/dL (0.6-1.2) 09/24/21 07:13 Estimated GFR > 60 ml/min 09/24/21 07:13 BUN/Creatinine Ratio 25 % 09/24/21 07:13 Glucose 84 mg/dL (65-100) 09/24/21 07:13 POC Glucose 102 mg/dL (70-105) 09/24/21 06:42 Hemoglobin A1c 5.3 % (4-6) 09/24/21 07:13 Calcium 9.3 mg/dL (8.4-10.2) 09/24/21 07:13 Total Bilirubin < 0.20 mg/dL (0.1-1.2) 09/24/21 07:13 AST 17 units/L (5-40) 09/24/21 07:13 ALT 18 units/L (7-56) 09/24/21 07:13 Alkaline Phosphatase 119 units/L (35-129) 09/24/21 07:13 Total Protein 6.1 g/dL (6.3-8.2) L 09/24/21 07:13 Albumin 3.9 g/dL (3.9-5) 09/24/21 07:13 Albumin/Globulin Ratio 1.8 % 09/24/21 07:13 Triglycerides 117 mg/dL (2-149) 09/24/21 07:13 Cholesterol 140 mg/dL (50-199) 09/24/21 07:13 LDL Cholesterol Direct 53 mg/dL (50-130) 09/24/21 07:13 HDL Cholesterol 68 mg/dL (40-59) H 09/24/21 07:13 Cholesterol/HDL Ratio 2.05 % 09/24/21 07:13 TSH 0.751 mlU/mL (0.270-4.200) 09/24/21 07:13 Hepatitis A IgM Ab Non-reactive (NonReactive) 09/24/21 07:13 Hep Bs Antigen Non-reactive (Negative) 09/24/21 07:13 Hep B Core IgM Ab Non-reactive (NonReactive) 09/24/21 07:13 Hepatitis C Antibody Non-reactive (NonReactive) 09/24/21 07:13 Last Vital Signs Temp 97.8 F 09/25/21 19:58 Pulse 81 09/25/21 20:57 Resp 18 09/25/21 19:58 BP 127/53 09/25/21 19:58 Pulse Ox 81 L 09/25/21 19:58
--- NOTE | 2021-09-26 19:41 | Progress Note ---
Assessment and Plan - Patient Problems (1) Generalized anxiety disorder Current Visit: Yes Status: Acute Plan to address problem: Benzodiazepine therapy as clinically indicated, supportive care. (2) Schizophrenia Current Visit: Yes Status: Acute Qualifiers: Schizophrenia type: unspecified Qualified Code(s): F20.9 - Schizophrenia, unspecified Plan to address problem: Continue medical management, supportive care. (3) Hypertension Current Visit: Yes Status: Acute Qualifiers: Hypertension type: primary hypertension Qualified Code(s): I10 - Essential (primary) hypertension Plan to address problem: Monitor blood pressure every shift, continue medical management. (4) GERD (gastroesophageal reflux disease) Current Visit: Yes Status: Acute Qualifiers: Esophagitis presence: without esophagitis Qualified Code(s): K21.9 - Gastro-esophageal reflux disease without esophagitis Plan to address problem: PPI therapy, supportive care. Outpatient GI follow-up. (5) Advance care planning Current Visit: Yes Status: Acute Plan to address problem: Disease education conducted, care plan discussed, diagnoses discussed, prognosis discussed, patient is full code, +30 minutes. (6) Preventative health care Current Visit: Yes Status: Acute Plan to address problem: Patient counseled regarding cognitive behavioral therapy, medication compliance, outpatient follow-up with primary care physician for age and risk factor appropriate screening tests. History Interval history: 56 YO Female with GERD, HTN, Bipolar Disorder, Schizophrenia, FARRAH admitted to [facility] for psychiatric stabilization. Consult placed by Dr. Arredondo for medical management. Patient seen and evaluated in the recreation room. Patient exhibits continued tangential thinking. No reported nursing events. Patient remains at baseline level of cognition and function. Hospitalist Physical - Constitutional Vitals: Temp Pulse Resp BP Pulse Ox 98.3 F 78 18 104/72 81 L 09/26/21 09:04 09/26/21 09:04 09/26/21 08:40 09/26/21 09:35 09/25/21 19:58 General appearance: Present: no acute distress, well-nourished - EENT Eyes: Present: PERRL ENT: hearing intact - Neck Neck: Present: supple - Respiratory Respiratory effort: normal Respiratory: bilateral: CTA - Cardiovascular Rhythm: regular Heart Sounds: Present: S1 & S2 - Extremities Extremities: no ischemia Peripheral Pulses: within normal limits - Abdominal General gastrointestinal: soft, non-tender, non-distended - Integumentary Integumentary: Present: clear, dry - Psychiatric Psychiatric: cooperative - Neurologic Neurologic: CNII-XII intact Results - Labs CBC & Chem 7: 09/24/21 07:13 09/24/21 07:13 Labs: Laboratory Last Values WBC 10.2 K/mm3 (4.5-11.0) 09/24/21 07:13 RBC 4.76 M/mm3 (3.65-5.03) 09/24/21 07:13 Hgb 13.1 gm/dl (10.1-14.3) 09/24/21 07:13 Hct 40.3 % (30.3-42.9) 09/24/21 07:13 MCV 85 fl (79-97) 09/24/21 07:13 MCH 28 pg (28-32) 09/24/21 07:13 MCHC 33 % (30-34) 09/24/21 07:13 RDW 13.8 % (13.2-15.2) 09/24/21 07:13 Plt Count 128 K/mm3 (140-440) L 09/24/21 07:13 Lymph % (Auto) 33.9 % (13.4-35.0) 09/24/21 07:13 [place] % (Auto) 6.3 % (0.0-7.3) 09/24/21 07:13 Eos % (Auto) 1.6 % (0.0-4.3) 09/24/21 07:13 Baso % (Auto) 0.3 % (0.0-1.8) 09/24/21 07:13 Lymph # (Auto) 3.5 K/mm3 (1.2-5.4) 09/24/21 07:13 [place] # (Auto) 0.6 K/mm3 (0.0-0.8) 09/24/21 07:13 Eos # (Auto) 0.2 K/mm3 (0.0-0.4) 09/24/21 07:13 Baso # (Auto) 0.0 K/mm3 (0.0-0.1) 09/24/21 07:13 Seg Neutrophils % 57.9 % (40.0-70.0) 09/24/21 07:13 Seg Neutrophils # 5.9 K/mm3 (1.8-7.7) 09/24/21 07:13 Sodium 139 mmol/L (137-145) 09/24/21 07:13 Potassium 4.5 mmol/L (3.6-5.0) 09/24/21 07:13 Chloride 105.7 mmol/L (98-107) 09/24/21 07:13 Carbon Dioxide 26 mmol/L (22-30) 09/24/21 07:13 Anion Gap 12 mmol/L 09/24/21 07:13 BUN 20 mg/dL (7-17) H 09/24/21 07:13 Creatinine 0.8 mg/dL (0.6-1.2) 09/24/21 07:13 Estimated GFR > 60 ml/min 09/24/21 07:13 BUN/Creatinine Ratio 25 % 09/24/21 07:13 Glucose 84 mg/dL (65-100) 09/24/21 07:13 POC Glucose 102 mg/dL (70-105) 09/24/21 06:42 Hemoglobin A1c 5.3 % (4-6) 09/24/21 07:13 Calcium 9.3 mg/dL (8.4-10.2) 09/24/21 07:13 Total Bilirubin < 0.20 mg/dL (0.1-1.2) 09/24/21 07:13 AST 17 units/L (5-40) 09/24/21 07:13 ALT 18 units/L (7-56) 09/24/21 07:13 Alkaline Phosphatase 119 units/L (35-129) 09/24/21 07:13 Total Protein 6.1 g/dL (6.3-8.2) L 09/24/21 07:13 Albumin 3.9 g/dL (3.9-5) 09/24/21 07:13 Albumin/Globulin Ratio 1.8 % 09/24/21 07:13 Triglycerides 117 mg/dL (2-149) 09/24/21 07:13 Cholesterol 140 mg/dL (50-199) 09/24/21 07:13 LDL Cholesterol Direct 53 mg/dL (50-130) 09/24/21 07:13 HDL Cholesterol 68 mg/dL (40-59) H 09/24/21 07:13 Cholesterol/HDL Ratio 2.05 % 09/24/21 07:13 TSH 0.751 mlU/mL (0.270-4.200) 09/24/21 07:13 Hepatitis A IgM Ab Non-reactive (NonReactive) 09/24/21 07:13 Hep Bs Antigen Non-reactive (Negative) 09/24/21 07:13 Hep B Core IgM Ab Non-reactive (NonReactive) 09/24/21 07:13 Hepatitis C Antibody Non-reactive (NonReactive) 09/24/21 07:13 Wright/IV: Voiding Method Toilet Active Medications - Current Medications Current Medications: Generic Name Dose Route Start Last Admin Trade Name Freq PRN Reason Stop Dose Admin Albuterol 2.5 mg 09/23/21 12:00 Albuterol 2.5 Mg/3 Ml Nebu IH Q4HRT PRN Shortness Of Breath Albuterol 2.5 mg 09/25/21 12:00 09/26/21 08:31 Albuterol 2.5 Mg/3 Ml Nebu IH 2.5 mg BIDRT ALYSSIA Administration Atorvastatin Calcium 40 mg 09/23/21 22:00 09/25/21 21:53 Atorvastatin 40 Mg Tab PO 40 mg QHS ALYSSIA Administration Divalproex Sodium 250 mg 09/25/21 12:00 09/26/21 09:[address] 250 Mg Tab PO 250 mg BID ALYSSIA Administration Lisinopril 20 mg 09/23/21 10:00 09/26/21 09:35 Lisinopril 20 Mg Tab PO Not Given DAILY ALYSSIA Metformin HCl 500 mg 09/23/21 10:00 09/26/21 16:24 Metformin 500 Mg Tab PO 500 mg BIDDIAB ALYSSIA Administration Metoprolol Succinate 25 mg 09/23/21 10:00 09/26/21 09:34 Metoprolol Succinate Xl 25 Mg Tab PO Not Given QDAY ALYSSIA Nicotine 21 mg 09/23/21 10:00 09/26/21 09:34 Nicotine 21 Mg/24 Hr Patch TD 21 mg QDAY ALYSSIA Administration Olanzapine 10 mg 09/25/21 12:00 09/26/21 09:33 Olanzapine 10 Mg Tab PO 10 mg BID ALYSSIA Administration Pantoprazole Sodium 40 mg 09/23/21 10:00 09/26/21 09:32 Pantoprazole 40 Mg Tab PO 40 mg QDAY ALYSSIA Administration Thyroid 30 mg 09/23/21 10:00 09/26/21 09:35 Thyroid,Porcine 60 Mg Tab PO 30 mg QDAY ALYSSIA Administration Ziprasidone 20 mg 09/23/21 09:30 09/23/21 11:38 Ziprasidone Mesylate 20 Mg Vial IM 20 mg Q4H PRN Administration Agitation
[2021-09-27] MEDS: ALBUTEROL 2.5 MG/3 ML NEBU IH SCH ×3 (06:47→20:18)
[2021-09-27] MEDS: metFORMIN 500 MG TAB PO SCH ×2 (08:00→17:30)
[2021-09-27] MEDS: THYROID,PORCINE 60 MG TAB PO SCH (10:00)
[2021-09-27] MEDS: NICOTINE 21 MG/24 HR PATCH TD SCH (10:00)
[2021-09-27] MEDS: METOPROLOL SUCCINATE XL 25 MG TAB PO SCH (10:01)
[2021-09-27] MEDS: LISINOPRIL 20 MG TAB PO SCH (10:01)
[2021-09-27] MEDS: PANTOPRAZOLE 40 MG TAB PO SCH (10:02)
--- NOTE | 2021-09-27 10:02 | Progress Note ---
Subjective Date of service: 09/27/21 Subjective Comment: 09/27:The patient was seen in her room yelling. Start Haldol 10mg po BID. Plan to start Haldol DEC FRAZIER. Increase Depakote DR to 500mg po BID. Discontinue Zyprexa. 09/26: The patient was seen this morning. She continues to be labile and loud. The patient presents with flight of ideas. No changes made today. 09/25: The patient was seen this morning. She states she is doing well. The patient continues to be disorganized and responding to internal stimuli. Increased Zyprexa 10mg po BID, Start Depakote 250mg po BID 09/24: The patient was seen this morning. The patient continues to be disorganized and responding to internal stimuli. No changes made today. REVIEW OF SYSTEMS Unable to obtain MENTAL STATUS EXAMINATION Unable to obtain Diagnoses: Schizophrenia Treatment Plan Patient admitted for inpatient psychiatric evaluation, medication adjustment and close monitoring The patient's behavior, mood, sleep and appetite will be closely monitored. Patient enrolled in individual and group therapeutic sessions and encouraged to attend. Patient provided with a safe and structured environment. Patient's physical health needs will be addressed by the Hospitalist. Hospitalist Consulted Labs including CBC, CMP, Lipid profile and Hemoglobin A1C levels ordered for baseline reference Social Assessment will be completed and the Student Assistance Counselor will work with patient and family to ensure a suitable and safe disposition Medication adjustment will be made as clinically indicated Continue home meds Start Zyprexa 10mg po BID Start Depakote 250mg po BID Usual Wellness Scientology/Preservation: - Start Trazodone 50 mg po QHS & 50 mg po QHS PRN between 10 PM & 2 AM for insomnia - Start Melatonin 5 mg po QHS to promote circadian rhythm The patient agreed on the treatment plan, understood the risk, benefit, alternative treatment, potential consequence of no treatment, and gave informed consent. Estimated days: 7 Post hospital care: primary care provider, psychiatric provider Case staffed with Dr. Guillaume Legal Status: Voluntary Reaction to Hospitalization: Accepting Medications and Allergies Medications and Allergies Allergies Allergy/AdvReac Type Severity Reaction Status Date / Time codeine Allergy Unknown Verified 09/23/21 01:27 morphine Allergy Unknown Verified 09/23/21 01:28 Penicillins Allergy Unknown Verified 09/23/21 01:27 Home Medications Medication Instructions Recorded Confirmed Last Taken Type Albuterol Mdi (or & Nicu Only) 2 puff IH QID PRN 09/23/21 09/23/21 Unknown History [ProAir HFA Inhaler] AtorvaSTATin [Lipitor] 40 mg PO QHS 09/23/21 09/23/21 Unknown History Metoprolol Xl [Metoprolol 25 mg PO QDAY 09/23/21 09/23/21 Unknown History SUCCINATE ER TAB] OLANZapine [Zyprexa] 5 mg PO BID 09/23/21 09/23/21 Unknown History Pantoprazole [Protonix] 40 mg PO QDAY 09/23/21 09/23/21 Unknown History Thyroid,Porcine [Thyroid] 30 mg PO QDAY 09/23/21 09/23/21 Unknown History lisinopriL [Lisinopril] 20 mg PO DAILY 09/23/21 09/23/21 Unknown History metFORMIN [Glucophage] 500 mg PO BID 09/23/21 09/23/21 Unknown History Active Meds: Active Medications Albuterol (Albuterol 2.5 Mg/3 Ml Nebu) 2.5 mg IH Q4HRT PRN PRN Reason: Shortness Of Breath Albuterol (Albuterol 2.5 Mg/3 Ml Nebu) 2.5 mg IH BIDRT [facility] Last Admin: 09/27/21 09:26 Dose: Not Given Atorvastatin Calcium (Atorvastatin 40 Mg Tab) 40 mg PO QHS [facility] Last Admin: 09/26/21 22:13 Dose: 40 mg Divalproex Sodium (Divalproex Dr 500 Mg Tab) 500 mg PO BID [facility] Haloperidol (Haloperidol 5 Mg Tab) 10 mg PO BID [facility] Haloperidol Decanoate (Haloperidol Decanoate 100 Mg/1 Ml Inj) 50 mg IM ONCE ONE Stop: 09/29/21 09:01 Lisinopril (Lisinopril 20 Mg Tab) 20 mg PO DAILY [facility] Last Admin: 09/26/21 09:35 Dose: Not Given Metformin HCl (Metformin 500 Mg Tab) 500 mg PO BIDDIAB [facility] Last Admin: 09/26/21 16:24 Dose: 500 mg Metoprolol Succinate (Metoprolol Succinate Xl 25 Mg Tab) 25 mg PO QDAY [facility] Last Admin: 09/26/21 09:34 Dose: Not Given Nicotine (Nicotine 21 Mg/24 Hr Patch) 21 mg TD QDAY [facility] Last Admin: 09/26/21 09:34 Dose: 21 mg Pantoprazole Sodium (Pantoprazole 40 Mg Tab) 40 mg PO QDAY [facility] Last Admin: 09/26/21 09:32 Dose: 40 mg Thyroid (Thyroid,Porcine 60 Mg Tab) 30 mg PO QDAY [facility] Last Admin: 09/26/21 09:35 Dose: 30 mg Ziprasidone (Ziprasidone Mesylate 20 Mg Vial) 20 mg IM Q4H PRN PRN Reason: Agitation Last Admin: 09/23/21 11:38 Dose: 20 mg Results - Results Labs/Vitals: Laboratory Last Values WBC 10.2 K/mm3 (4.5-11.0) 09/24/21 07:13 RBC 4.76 M/mm3 (3.65-5.03) 09/24/21 07:13 Hgb 13.1 gm/dl (10.1-14.3) 09/24/21 07:13 Hct 40.3 % (30.3-42.9) 09/24/21 07:13 MCV 85 fl (79-97) 09/24/21 07:13 MCH 28 pg (28-32) 09/24/21 07:13 MCHC 33 % (30-34) 09/24/21 07:13 RDW 13.8 % (13.2-15.2) 09/24/21 07:13 Plt Count 128 K/mm3 (140-440) L 09/24/21 07:13 Lymph % (Auto) 33.9 % (13.4-35.0) 09/24/21 07:13 [place] % (Auto) 6.3 % (0.0-7.3) 09/24/21 07:13 Eos % (Auto) 1.6 % (0.0-4.3) 09/24/21 07:13 Baso % (Auto) 0.3 % (0.0-1.8) 09/24/21 07:13 Lymph # (Auto) 3.5 K/mm3 (1.2-5.4) 09/24/21 07:13 [place] # (Auto) 0.6 K/mm3 (0.0-0.8) 09/24/21 07:13 Eos # (Auto) 0.2 K/mm3 (0.0-0.4) 09/24/21 07:13 Baso # (Auto) 0.0 K/mm3 (0.0-0.1) 09/24/21 07:13 Seg Neutrophils % 57.9 % (40.0-70.0) 09/24/21 07:13 Seg Neutrophils # 5.9 K/mm3 (1.8-7.7) 09/24/21 07:13 Sodium 139 mmol/L (137-145) 09/24/21 07:13 Potassium 4.5 mmol/L (3.6-5.0) 09/24/21 07:13 Chloride 105.7 mmol/L (98-107) 09/24/21 07:13 Carbon Dioxide 26 mmol/L (22-30) 09/24/21 07:13 Anion Gap 12 mmol/L 09/24/21 07:13 BUN 20 mg/dL (7-17) H 09/24/21 07:13 Creatinine 0.8 mg/dL (0.6-1.2) 09/24/21 07:13 Estimated GFR > 60 ml/min 09/24/21 07:13 BUN/Creatinine Ratio 25 % 09/24/21 07:13 Glucose 84 mg/dL (65-100) 09/24/21 07:13 POC Glucose 102 mg/dL (70-105) 09/24/21 06:42 Hemoglobin A1c 5.3 % (4-6) 09/24/21 07:13 Calcium 9.3 mg/dL (8.4-10.2) 09/24/21 07:13 Total Bilirubin < 0.20 mg/dL (0.1-1.2) 09/24/21 07:13 AST 17 units/L (5-40) 09/24/21 07:13 ALT 18 units/L (7-56) 09/24/21 07:13 Alkaline Phosphatase 119 units/L (35-129) 09/24/21 07:13 Total Protein 6.1 g/dL (6.3-8.2) L 09/24/21 07:13 Albumin 3.9 g/dL (3.9-5) 09/24/21 07:13 Albumin/Globulin Ratio 1.8 % 09/24/21 07:13 Triglycerides 117 mg/dL (2-149) 09/24/21 07:13 Cholesterol 140 mg/dL (50-199) 09/24/21 07:13 LDL Cholesterol Direct 53 mg/dL (50-130) 09/24/21 07:13 HDL Cholesterol 68 mg/dL (40-59) H 09/24/21 07:13 Cholesterol/HDL Ratio 2.05 % 09/24/21 07:13 TSH 0.751 mlU/mL (0.270-4.200) 09/24/21 07:13 Hepatitis A IgM Ab Non-reactive (NonReactive) 09/24/21 07:13 Hep Bs Antigen Non-reactive (Negative) 09/24/21 07:13 Hep B Core IgM Ab Non-reactive (NonReactive) 09/24/21 07:13 Hepatitis C Antibody Non-reactive (NonReactive) 09/24/21 07:13 Last Vital Signs Temp 98.1 F 09/26/21 19:57 Pulse 81 09/26/21 19:57 Resp 17 09/26/21 19:57 BP 123/68 09/26/21 19:57 Pulse Ox 100 09/26/21 19:57
[2021-09-27] MEDS ORDERED: WATER FOR INJ Sterile (PF) 10 ML ONE (10:29)
[2021-09-27] MEDS: ZIPRASIDONE MESYLATE 20 MG VIAL IM PRN (10:30)
[2021-09-27] MEDS: HALOPERIDOL 5 MG TAB PO SCH ×2 (11:00→21:42)
[2021-09-27] MEDS: DIVALPROEX DR 500 MG TAB PO SCH ×2 (11:00→21:43)
[2021-09-28] MEDS: ALBUTEROL 2.5 MG/3 ML NEBU IH SCH ×2 (09:50→21:13)
[2021-09-28] MEDS: metFORMIN 500 MG TAB PO SCH ×2 (10:02→17:22)
[2021-09-28] MEDS: HALOPERIDOL 5 MG TAB PO SCH ×2 (10:02→21:49)
[2021-09-28] MEDS: THYROID,PORCINE 60 MG TAB PO SCH (10:02)
[2021-09-28] MEDS: PANTOPRAZOLE 40 MG TAB PO SCH (10:02)
[2021-09-28] MEDS: NICOTINE 21 MG/24 HR PATCH TD SCH (10:02)
[2021-09-28] MEDS: DIVALPROEX DR 500 MG TAB PO SCH ×2 (10:02→21:49)
[2021-09-28] MEDS: LISINOPRIL 20 MG TAB PO SCH (10:03)
[2021-09-28] MEDS: METOPROLOL SUCCINATE XL 25 MG TAB PO SCH (10:03)
--- NOTE | 2021-09-28 11:13 | Progress Note ---
Subjective Date of service: 09/28/21 Subjective Comment: 09/28:The patient was seen this morning. She continues have be responding to internal stimuli and labile. 09/27:The patient was seen in her room yelling. Start Haldol 10mg po BID. Plan to start Haldol DEC FRAZIER. Increase Depakote DR to 500mg po BID. Discontinue Zyprexa. 09/26: The patient was seen this morning. She continues to be labile and loud. The patient presents with flight of ideas. No changes made today. 09/25: The patient was seen this morning. She states she is doing well. The patient continues to be disorganized and responding to internal stimuli. Increased Zyprexa 10mg po BID, Start Depakote 250mg po BID 09/24: The patient was seen this morning. The patient continues to be disorganized and responding to internal stimuli. No changes made today. REVIEW OF SYSTEMS Unable to obtain MENTAL STATUS EXAMINATION Unable to obtain Diagnoses: Schizophrenia Treatment Plan Patient admitted for inpatient psychiatric evaluation, medication adjustment and close monitoring The patient's behavior, mood, sleep and appetite will be closely monitored. Patient enrolled in individual and group therapeutic sessions and encouraged to attend. Patient provided with a safe and structured environment. Patient's physical health needs will be addressed by the Hospitalist. Hospitalist Consulted Labs including CBC, CMP, Lipid profile and Hemoglobin A1C levels ordered for baseline reference Social Assessment will be completed and the Change Of Address Clerk will work with patient and family to ensure a suitable and safe disposition Medication adjustment will be made as clinically indicated Continue home meds Start Zyprexa 10mg po BID Start Depakote 250mg po BID Usual Wellness W[employer]/Preservation: - Start Trazodone 50 mg po QHS & 50 mg po QHS PRN between 10 PM & 2 AM for insomnia - Start Melatonin 5 mg po QHS to promote circadian rhythm The patient agreed on the treatment plan, understood the risk, benefit, alternative treatment, potential consequence of no treatment, and gave informed consent. Estimated days: 7 Post hospital care: primary care provider, psychiatric provider Case staffed with Dr. Guillaume Legal Status: Voluntary Reaction to Hospitalization: Accepting Medications and Allergies Medications and Allergies Allergies Allergy/AdvReac Type Severity Reaction Status Date / Time codeine Allergy Unknown Verified 09/23/21 01:27 morphine Allergy Unknown Verified 09/23/21 01:28 Penicillins Allergy Unknown Verified 09/23/21 01:27 Home Medications Medication Instructions Recorded Confirmed Last Taken Type Albuterol Mdi (or & Nicu Only) 2 puff IH QID PRN 09/23/21 09/23/21 Unknown History [ProAir HFA Inhaler] AtorvaSTATin [Lipitor] 40 mg PO QHS 09/23/21 09/23/21 Unknown History Metoprolol Xl [Metoprolol 25 mg PO QDAY 09/23/21 09/23/21 Unknown History SUCCINATE ER TAB] OLANZapine [Zyprexa] 5 mg PO BID 09/23/21 09/23/21 Unknown History Pantoprazole [Protonix] 40 mg PO QDAY 09/23/21 09/23/21 Unknown History Thyroid,Porcine [Thyroid] 30 mg PO QDAY 09/23/21 09/23/21 Unknown History lisinopriL [Lisinopril] 20 mg PO DAILY 09/23/21 09/23/21 Unknown History metFORMIN [Glucophage] 500 mg PO BID 09/23/21 09/23/21 Unknown History Active Meds: Active Medications Albuterol (Albuterol 2.5 Mg/3 Ml Nebu) 2.5 mg IH Q4HRT PRN PRN Reason: Shortness Of Breath Albuterol (Albuterol 2.5 Mg/3 Ml Nebu) 2.5 mg IH BIDRT [facility] Last Admin: 09/28/21 09:50 Dose: 2.5 mg Atorvastatin Calcium (Atorvastatin 40 Mg Tab) 40 mg PO QHS [facility] Last Admin: 09/27/21 21:43 Dose: 40 mg Divalproex Sodium (Divalproex Dr 500 Mg Tab) 500 mg PO BID [facility] Last Admin: 09/28/21 10:02 Dose: 500 mg Haloperidol (Haloperidol 5 Mg Tab) 10 mg PO BID [facility] Last Admin: 09/28/21 10:02 Dose: 10 mg Haloperidol Decanoate (Haloperidol Decanoate 100 Mg/1 Ml Inj) 50 mg IM ONCE ONE Stop: 09/29/21 09:01 Lisinopril (Lisinopril 20 Mg Tab) 20 mg PO DAILY [facility] Last Admin: 09/28/21 10:03 Dose: Not Given Metformin HCl (Metformin 500 Mg Tab) 500 mg PO BIDDIAB [facility] Last Admin: 09/28/21 10:02 Dose: 500 mg Metoprolol Succinate (Metoprolol Succinate Xl 25 Mg Tab) 25 mg PO QDAY [facility] Last Admin: 09/28/21 10:03 Dose: Not Given Nicotine (Nicotine 21 Mg/24 Hr Patch) 21 mg TD QDAY [facility] Last Admin: 09/28/21 10:02 Dose: 21 mg Pantoprazole Sodium (Pantoprazole 40 Mg Tab) 40 mg PO QDAY [facility] Last Admin: 09/28/21 10:02 Dose: 40 mg Thyroid (Thyroid,Porcine 60 Mg Tab) 30 mg PO QDAY [facility] Last Admin: 09/28/21 10:02 Dose: 30 mg Results - Results Labs/Vitals: Laboratory Last Values WBC 10.2 K/mm3 (4.5-11.0) 09/24/21 07:13 RBC 4.76 M/mm3 (3.65-5.03) 09/24/21 07:13 Hgb 13.1 gm/dl (10.1-14.3) 09/24/21 07:13 Hct 40.3 % (30.3-42.9) 09/24/21 07:13 MCV 85 fl (79-97) 09/24/21 07:13 MCH 28 pg (28-32) 09/24/21 07:13 MCHC 33 % (30-34) 09/24/21 07:13 RDW 13.8 % (13.2-15.2) 09/24/21 07:13 Plt Count 128 K/mm3 (140-440) L 09/24/21 07:13 Lymph % (Auto) 33.9 % (13.4-35.0) 09/24/21 07:13 [place] % (Auto) 6.3 % (0.0-7.3) 09/24/21 07:13 Eos % (Auto) 1.6 % (0.0-4.3) 09/24/21 07:13 Baso % (Auto) 0.3 % (0.0-1.8) 09/24/21 07:13 Lymph # (Auto) 3.5 K/mm3 (1.2-5.4) 09/24/21 07:13 [place] # (Auto) 0.6 K/mm3 (0.0-0.8) 09/24/21 07:13 Eos # (Auto) 0.2 K/mm3 (0.0-0.4) 09/24/21 07:13 Baso # (Auto) 0.0 K/mm3 (0.0-0.1) 09/24/21 07:13 Seg Neutrophils % 57.9 % (40.0-70.0) 09/24/21 07:13 Seg Neutrophils # 5.9 K/mm3 (1.8-7.7) 09/24/21 07:13 Sodium 139 mmol/L (137-145) 09/24/21 07:13 Potassium 4.5 mmol/L (3.6-5.0) 09/24/21 07:13 Chloride 105.7 mmol/L (98-107) 09/24/21 07:13 Carbon Dioxide 26 mmol/L (22-30) 09/24/21 07:13 Anion Gap 12 mmol/L 09/24/21 07:13 BUN 20 mg/dL (7-17) H 09/24/21 07:13 Creatinine 0.8 mg/dL (0.6-1.2) 09/24/21 07:13 Estimated GFR > 60 ml/min 09/24/21 07:13 BUN/Creatinine Ratio 25 % 09/24/21 07:13 Glucose 84 mg/dL (65-100) 09/24/21 07:13 POC Glucose 102 mg/dL (70-105) 09/24/21 06:42 Hemoglobin A1c 5.3 % (4-6) 09/24/21 07:13 Calcium 9.3 mg/dL (8.4-10.2) 09/24/21 07:13 Total Bilirubin < 0.20 mg/dL (0.1-1.2) 09/24/21 07:13 AST 17 units/L (5-40) 09/24/21 07:13 ALT 18 units/L (7-56) 09/24/21 07:13 Alkaline Phosphatase 119 units/L (35-129) 09/24/21 07:13 Total Protein 6.1 g/dL (6.3-8.2) L 09/24/21 07:13 Albumin 3.9 g/dL (3.9-5) 09/24/21 07:13 Albumin/Globulin Ratio 1.8 % 09/24/21 07:13 Triglycerides 117 mg/dL (2-149) 09/24/21 07:13 Cholesterol 140 mg/dL (50-199) 09/24/21 07:13 LDL Cholesterol Direct 53 mg/dL (50-130) 09/24/21 07:13 HDL Cholesterol 68 mg/dL (40-59) H 09/24/21 07:13 Cholesterol/HDL Ratio 2.05 % 09/24/21 07:13 TSH 0.751 mlU/mL (0.270-4.200) 09/24/21 07:13 Hepatitis A IgM Ab Non-reactive (NonReactive) 09/24/21 07:13 Hep Bs Antigen Non-reactive (Negative) 09/24/21 07:13 Hep B Core IgM Ab Non-reactive (NonReactive) 09/24/21 07:13 Hepatitis C Antibody Non-reactive (NonReactive) 09/24/21 07:13 Last Vital Signs Temp 98.1 F 09/27/21 12:44 Pulse 97 H 09/28/21 09:51 Resp 18 09/28/21 09:51 BP 105/68 09/27/21 12:44 Pulse Ox 100 09/26/21 19:57
--- NOTE | 2021-09-29 08:35 | Progress Note ---
Assessment and Plan Assessment and Plan - Patient Problems (1) Generalized anxiety disorder Current Visit: Yes Status: Acute Plan to address problem: Benzodiazepine therapy as clinically indicated, supportive care. (2) Schizophrenia Current Visit: Yes Status: Acute Qualifiers: Schizophrenia type: unspecified Qualified Code(s): F20.9 - Schizophrenia, unspecified Plan to address problem: Continue medical management, supportive care. (3) Hypertension Current Visit: Yes Status: Acute Qualifiers: Hypertension type: primary hypertension Qualified Code(s): I10 - Essential (primary) hypertension Plan to address problem: Monitor blood pressure every shift, continue medical management. (4) GERD (gastroesophageal reflux disease) Current Visit: Yes Status: Acute Qualifiers: Esophagitis presence: without esophagitis Qualified Code(s): K21.9 - Gastro-esophageal reflux disease without esophagitis Plan to address problem: PPI therapy, supportive care. Outpatient GI follow-up. (5) Advance care planning Current Visit: Yes Status: Acute Plan to address problem: Disease education conducted, care plan discussed, diagnoses discussed, prognosis discussed, patient is full code, +30 minutes. (6) Preventative health care Current Visit: Yes Status: Acute Plan to address problem: Patient counseled regarding cognitive behavioral therapy, medication compliance, outpatient follow-up with primary care physician for age and risk factor appropriate screening tests. Subjective Date of service: 09/27/21 Principal diagnosis: Bipolar disorder, schizophrenia Interval history: History Interval history: 56 YO Female with GERD, HTN, Bipolar Disorder, Schizophrenia, FARRAH admitted to [facility] for psychiatric stabilization. Consult placed by Dr. Arredondo for medical management. Patient seen and evaluated in the recreation room. Patient exhibits continued tangential thinking. No reported nursing events. Patient remains at baseline level of cognition and function. Objective - Constitutional Vitals: Vital Signs - 12hr 09/28/21 21:13 Pulse Rate [ 72 Bilateral] Respiratory 18 Rate [Bilateral ] General appearance: Present: no acute distress, well-nourished - EENT Eyes: PERRL, EOM intact ENT: hearing intact, clear oral mucosa Ears: bilateral: normal - Neck Neck: supple, normal ROM - Respiratory Respiratory effort: normal Respiratory: bilateral: CTA - Breasts Breasts: normal - Cardiovascular Heart rate: 78 Rhythm: regular Heart Sounds: Present: S1 & S2. Absent: gallop, rub Extremities: pulses intact, No edema, normal color, Full ROM - Gastrointestinal General gastrointestinal: Present: soft, non-tender, non-distended, normal bowel sounds - Genitourinary Female genitourinary: normal - Integumentary Integumentary: clear, warm, dry - Musculoskeletal Musculoskeletal: 1, strength equal bilaterally - Neurologic Neurologic: moves all extremities - Psychiatric Psychiatric: memory intact, appropriate mood/affect, intact judgment & insight - Labs CBC & Chem 7: 09/24/21 07:13 09/24/21 07:13
[2021-09-29] MEDS: ALBUTEROL 2.5 MG/3 ML NEBU IH SCH ×2 (08:50→20:56)
--- NOTE | 2021-09-29 09:37 | Progress Note ---
Subjective Date of service: 09/29/21 Principal diagnosis: Bipolar disorder, schizophrenia Subjective Comment: 09/29:The patient was seen this morning. She is calm today. She continues to present with flight of ideas. Denies si/hi 09/28:The patient was seen this morning. She continues have be responding to internal stimuli and labile. 09/27:The patient was seen in her room yelling. Start Haldol 10mg po BID. Plan to start Haldol DEC FRAZIER. Increase Depakote DR to 500mg po BID. Discontinue Zyprexa. 09/26: The patient was seen this morning. She continues to be labile and loud. The patient presents with flight of ideas. No changes made today. 09/25: The patient was seen this morning. She states she is doing well. The patient continues to be disorganized and responding to internal stimuli. Increased Zyprexa 10mg po BID, Start Depakote 250mg po BID 09/24: The patient was seen this morning. The patient continues to be disorganized and responding to internal stimuli. No changes made today. REVIEW OF SYSTEMS Unable to obtain MENTAL STATUS EXAMINATION Unable to obtain Diagnoses: Schizophrenia Treatment Plan Patient admitted for inpatient psychiatric evaluation, medication adjustment and close monitoring The patient's behavior, mood, sleep and appetite will be closely monitored. Patient enrolled in individual and group therapeutic sessions and encouraged to attend. Patient provided with a safe and structured environment. Patient's physical health needs will be addressed by the Hospitalist. Hospitalist Consulted Labs including CBC, CMP, Lipid profile and Hemoglobin A1C levels ordered for baseline reference Social Assessment will be completed and the [employer] Career Manager will work with patient and family to ensure a suitable and safe disposition Medication adjustment will be made as clinically indicated Continue home meds Start Zyprexa 10mg po BID Start Depakote 250mg po BID Usual Wellness Congregational/Preservation: - Start Trazodone 50 mg po QHS & 50 mg po QHS PRN between 10 PM & 2 AM for insomnia - Start Melatonin 5 mg po QHS to promote circadian rhythm The patient agreed on the treatment plan, understood the risk, benefit, alternative treatment, potential consequence of no treatment, and gave informed consent. Estimated days: 1 Post hospital care: primary care provider, psychiatric provider Case staffed with Dr. Guillaume Legal Status: Voluntary Reaction to Hospitalization: Accepting Medications and Allergies Medications and Allergies Allergies Allergy/AdvReac Type Severity Reaction Status Date / Time codeine Allergy Unknown Verified 09/23/21 01:27 morphine Allergy Unknown Verified 09/23/21 01:28 Penicillins Allergy Unknown Verified 09/23/21 01:27 Home Medications Medication Instructions Recorded Confirmed Last Taken Type Albuterol Mdi (or & Nicu Only) 2 puff IH QID PRN 09/23/21 09/23/21 Unknown History [ProAir HFA Inhaler] AtorvaSTATin [Lipitor] 40 mg PO QHS 09/23/21 09/23/21 Unknown History Metoprolol Xl [Metoprolol 25 mg PO QDAY 09/23/21 09/23/21 Unknown History SUCCINATE ER TAB] OLANZapine [Zyprexa] 5 mg PO BID 09/23/21 09/23/21 Unknown History Pantoprazole [Protonix] 40 mg PO QDAY 09/23/21 09/23/21 Unknown History Thyroid,Porcine [Thyroid] 30 mg PO QDAY 09/23/21 09/23/21 Unknown History lisinopriL [Lisinopril] 20 mg PO DAILY 09/23/21 09/23/21 Unknown History metFORMIN [Glucophage] 500 mg PO BID 09/23/21 09/23/21 Unknown History Active Meds: Active Medications Albuterol (Albuterol 2.5 Mg/3 Ml Nebu) 2.5 mg IH Q4HRT PRN PRN Reason: Shortness Of Breath Albuterol (Albuterol 2.5 Mg/3 Ml Nebu) 2.5 mg IH BIDRT [facility] Last Admin: 09/29/21 08:50 Dose: 2.5 mg Atorvastatin Calcium (Atorvastatin 40 Mg Tab) 40 mg PO QHS [facility] Last Admin: 09/28/21 21:49 Dose: 40 mg Divalproex Sodium (Divalproex Dr 500 Mg Tab) 500 mg PO BID [facility] Last Admin: 09/28/21 21:49 Dose: 500 mg Haloperidol (Haloperidol 5 Mg Tab) 10 mg PO BID [facility] Last Admin: 09/28/21 21:49 Dose: 10 mg Lisinopril (Lisinopril 20 Mg Tab) 20 mg PO DAILY [facility] Last Admin: 09/28/21 10:03 Dose: Not Given Metformin HCl (Metformin 500 Mg Tab) 500 mg PO BIDDIAB [facility] Last Admin: 09/28/21 17:22 Dose: 500 mg Metoprolol Succinate (Metoprolol Succinate Xl 25 Mg Tab) 25 mg PO QDAY [facility] Last Admin: 09/28/21 10:03 Dose: Not Given Nicotine (Nicotine 21 Mg/24 Hr Patch) 21 mg TD QDAY [facility] Last Admin: 09/28/21 10:02 Dose: 21 mg Pantoprazole Sodium (Pantoprazole 40 Mg Tab) 40 mg PO QDAY [facility] Last Admin: 09/28/21 10:02 Dose: 40 mg Thyroid (Thyroid,Porcine 60 Mg Tab) 30 mg PO QDAY [facility] Last Admin: 09/28/21 10:02 Dose: 30 mg Results - Results Labs/Vitals: Laboratory Last Values WBC 10.2 K/mm3 (4.5-11.0) 09/24/21 07:13 RBC 4.76 M/mm3 (3.65-5.03) 09/24/21 07:13 Hgb 13.1 gm/dl (10.1-14.3) 09/24/21 07:13 Hct 40.3 % (30.3-42.9) 09/24/21 07:13 MCV 85 fl (79-97) 09/24/21 07:13 MCH 28 pg (28-32) 09/24/21 07:13 MCHC 33 % (30-34) 09/24/21 07:13 RDW 13.8 % (13.2-15.2) 09/24/21 07:13 Plt Count 128 K/mm3 (140-440) L 09/24/21 07:13 Lymph % (Auto) 33.9 % (13.4-35.0) 09/24/21 07:13 [place] % (Auto) 6.3 % (0.0-7.3) 09/24/21 07:13 Eos % (Auto) 1.6 % (0.0-4.3) 09/24/21 07:13 Baso % (Auto) 0.3 % (0.0-1.8) 09/24/21 07:13 Lymph # (Auto) 3.5 K/mm3 (1.2-5.4) 09/24/21 07:13 [place] # (Auto) 0.6 K/mm3 (0.0-0.8) 09/24/21 07:13 Eos # (Auto) 0.2 K/mm3 (0.0-0.4) 09/24/21 07:13 Baso # (Auto) 0.0 K/mm3 (0.0-0.1) 09/24/21 07:13 Seg Neutrophils % 57.9 % (40.0-70.0) 09/24/21 07:13 Seg Neutrophils # 5.9 K/mm3 (1.8-7.7) 09/24/21 07:13 Sodium 139 mmol/L (137-145) 09/24/21 07:13 Potassium 4.5 mmol/L (3.6-5.0) 09/24/21 07:13 Chloride 105.7 mmol/L (98-107) 09/24/21 07:13 Carbon Dioxide 26 mmol/L (22-30) 09/24/21 07:13 Anion Gap 12 mmol/L 09/24/21 07:13 BUN 20 mg/dL (7-17) H 09/24/21 07:13 Creatinine 0.8 mg/dL (0.6-1.2) 09/24/21 07:13 Estimated GFR > 60 ml/min 09/24/21 07:13 BUN/Creatinine Ratio 25 % 09/24/21 07:13 Glucose 84 mg/dL (65-100) 09/24/21 07:13 POC Glucose 102 mg/dL (70-105) 09/24/21 06:42 Hemoglobin A1c 5.3 % (4-6) 09/24/21 07:13 Calcium 9.3 mg/dL (8.4-10.2) 09/24/21 07:13 Total Bilirubin < 0.20 mg/dL (0.1-1.2) 09/24/21 07:13 AST 17 units/L (5-40) 09/24/21 07:13 ALT 18 units/L (7-56) 09/24/21 07:13 Alkaline Phosphatase 119 units/L (35-129) 09/24/21 07:13 Total Protein 6.1 g/dL (6.3-8.2) L 09/24/21 07:13 Albumin 3.9 g/dL (3.9-5) 09/24/21 07:13 Albumin/Globulin Ratio 1.8 % 09/24/21 07:13 Triglycerides 117 mg/dL (2-149) 09/24/21 07:13 Cholesterol 140 mg/dL (50-199) 09/24/21 07:13 LDL Cholesterol Direct 53 mg/dL (50-130) 09/24/21 07:13 HDL Cholesterol 68 mg/dL (40-59) H 09/24/21 07:13 Cholesterol/HDL Ratio 2.05 % 09/24/21 07:13 TSH 0.751 mlU/mL (0.270-4.200) 09/24/21 07:13 Valproic Acid 73.2 ug/mL (50-100) 09/29/21 06:16 Hepatitis A IgM Ab Non-reactive (NonReactive) 09/24/21 07:13 Hep Bs Antigen Non-reactive (Negative) 09/24/21 07:13 Hep B Core IgM Ab Non-reactive (NonReactive) 09/24/21 07:13 Hepatitis C Antibody Non-reactive (NonReactive) 09/24/21 07:13 Last Vital Signs Temp 99.4 F 09/28/21 09:44 Pulse 75 09/29/21 09:01 Resp 18 09/29/21 09:01 BP 105/40 09/28/21 09:44 Pulse Ox 97 09/28/21 09:44
[2021-09-29] MEDS: PANTOPRAZOLE 40 MG TAB PO SCH (09:51)
[2021-09-29] MEDS: metFORMIN 500 MG TAB PO SCH ×2 (09:51→16:57)
[2021-09-29] MEDS: DIVALPROEX DR 500 MG TAB PO SCH ×2 (09:51→21:14)
[2021-09-29] MEDS: NICOTINE 21 MG/24 HR PATCH TD SCH (09:51)
[2021-09-29] MEDS: METOPROLOL SUCCINATE XL 25 MG TAB PO SCH (09:52)
[2021-09-29] MEDS: LISINOPRIL 20 MG TAB PO SCH (09:52)
[2021-09-29] MEDS: HALOPERIDOL DECANOATE 100 MG/1 ML INJ IM ONE ×2 (09:53→09:57)
[2021-09-29] MEDS: THYROID,PORCINE 60 MG TAB PO SCH (09:53)
[2021-09-29] MEDS: HALOPERIDOL 5 MG TAB PO SCH ×2 (09:57→21:15)
--- NOTE | 2021-09-29 17:03 | Progress Note ---
Assessment and Plan Assessment and plan: 09/29: Patient was seen and examined in the room at this time by the daughter she did not have her pants on trying to talk stick with her pants on she kept talking about her father secondary to [place]. Continues with ongoing psychosis we will continue management per psych team. From medical standpoint no new complaints. She currently has a tobacco patch I did have extensive discussion with her about need to quit smoking tobacco not sure how much she comprehends considering her current mental status. (1) Generalized anxiety disorder Current Visit: Yes Status: Acute Plan to address problem: Benzodiazepine therapy as clinically indicated, supportive care. (2) Schizophrenia Current Visit: Yes Status: Acute Qualifiers: Schizophrenia type: unspecified Qualified Code(s): F20.9 - Schizophrenia, unspecified Plan to address problem: Continue medical management, supportive care. (3) Hypertension Current Visit: Yes Status: Acute Qualifiers: Hypertension type: primary hypertension Qualified Code(s): I10 - Essential (primary) hypertension Plan to address problem: Monitor blood pressure every shift, continue medical management. (4) GERD (gastroesophageal reflux disease) Current Visit: Yes Status: Acute Qualifiers: Esophagitis presence: without esophagitis Qualified Code(s): K21.9 - Gastro-esophageal reflux disease without esophagitis Plan to address problem: PPI therapy, supportive care. Outpatient GI follow-up. (5) Advance care planning Current Visit: Yes Status: Acute Plan to address problem: Disease education conducted, care plan discussed, diagnoses discussed, prognosis discussed, patient is full code, +30 minutes. (6) tobacco use disorder 15 minutes counseling provided (7)preventative health care Current Visit: Yes Status: Acute Plan to address problem: Patient counseled regarding cognitive behavioral therapy, medication compliance, outpatient follow-up with primary care physician for age and risk factor appro priate screening tests. History Interval history: 56 YO Female with GERD, HTN, Bipolar Disorder, Schizophrenia, FARRAH admitted to [facility] for psychiatric stabilization. Consult placed by Dr. Arredondo for medical management. Patient seen and evaluated in the recreation room. Patient exhibits continued tangential thinking which is ongoing. Keeps talking about her father sending her to [employer]. No reported nursing events. Patient remains at baseline level of cognition and function. Hospitalist Physical - Physical exam Narrative exam: VITAL SIGNS: Reviewed. GENERAL: The patient appears normally developed, Vital signs as documented. HEAD: No signs of head trauma. EYES: Pupils are equal. Extraocular motions intact. EARS: Hearing grossly intact. MOUTH: Oropharynx is normal. NECK: No adenopathy, no JVD. CHEST: Chest with clear breath sounds bilaterally. No wheezes, rales, or rhonchi. CARDIAC: Regular rate and rhythm. S1 and S2, without murmurs, gallops, or rubs. VASCULAR: No Edema. Peripheral pulses normal and equal in all extremities. ABDOMEN: Soft, non tender and non distended. No rebound or guarding, and no masses palpated. Bowel Sounds normal. MUSCULOSKELETAL: Good range of motion of all major joints. Extremities without clubbing, cyanosis or edema. NEUROLOGIC EXAM: Alert and oriented x 3 No focal sensory or strength d eficits. Speech normal. Follows commands. PSYCHIATRIC: Mood normal. SKIN: detail exam as documented in skin assessment - Constitutional Vitals: Temp Pulse Resp BP Pulse Ox 99.4 F 75 18 105/40 97 09/28/21 09:44 09/29/21 09:01 09/29/21 09:01 09/28/21 09:44 09/28/21 09:44 General appearance: Present: no acute distress, well-nourished Results - Labs CBC & Chem 7: 09/24/21 07:13 09/24/21 07:13 Labs: Laboratory Last Values WBC 10.2 K/mm3 (4.5-11.0) 09/24/21 07:13 RBC 4.76 M/mm3 (3.65-5.03) 09/24/21 07:13 Hgb 13.1 gm/dl (10.1-14.3) 09/24/21 07:13 Hct 40.3 % (30.3-42.9) 09/24/21 07:13 MCV 85 fl (79-97) 09/24/21 07:13 MCH 28 pg (28-32) 09/24/21 07:13 MCHC 33 % (30-34) 09/24/21 07:13 RDW 13.8 % (13.2-15.2) 09/24/21 07:13 Plt Count 128 K/mm3 (140-440) L 09/24/21 07:13 Lymph % (Auto) 33.9 % (13.4-35.0) 09/24/21 07:13 [place] % (Auto) 6.3 % (0.0-7.3) 09/24/21 07:13 Eos % (Auto) 1.6 % (0.0-4.3) 09/24/21 07:13 Baso % (Auto) 0.3 % (0.0-1.8) 09/24/21 07:13 Lymph # (Auto) 3.5 K/mm3 (1.2-5.4) 09/24/21 07:13 [place] # (Auto) 0.6 K/mm3 (0.0-0.8) 09/24/21 07:13 Eos # (Auto) 0.2 K/mm3 (0.0-0.4) 09/24/21 07:13 Baso # (Auto) 0.0 K/mm3 (0.0-0.1) 09/24/21 07:13 Seg Neutrophils % 57.9 % (40.0-70.0) 09/24/21 07:13 Seg Neutrophils # 5.9 K/mm3 (1.8-7.7) 09/24/21 07:13 Sodium 139 mmol/L (137-145) 09/24/21 07:13 Potassium 4.5 mmol/L (3.6-5.0) 09/24/21 07:13 Chloride 105.7 mmol/L (98-107) 09/24/21 07:13 Carbon Dioxide 26 mmol/L (22-30) 09/24/21 07:13 Anion Gap 12 mmol/L 09/24/21 07:13 BUN 20 mg/dL (7-17) H 09/24/21 07:13 Creatinine 0.8 mg/dL (0.6-1.2) 09/24/21 07:13 Estimated GFR > 60 ml/min 09/24/21 07:13 BUN/Creatinine Ratio 25 % 09/24/21 07:13 Glucose 84 mg/dL (65-100) 09/24/21 07:13 POC Glucose 102 mg/dL (70-105) 09/24/21 06:42 Hemoglobin A1c 5.3 % (4-6) 09/24/21 07:13 Calcium 9.3 mg/dL (8.4-10.2) 09/24/21 07:13 Total Bilirubin < 0.20 mg/dL (0.1-1.2) 09/24/21 07:13 AST 17 units/L (5-40) 09/24/21 07:13 ALT 18 units/L (7-56) 09/24/21 07:13 Alkaline Phosphatase 119 units/L (35-129) 09/24/21 07:13 Total Protein 6.1 g/dL (6.3-8.2) L 09/24/21 07:13 Albumin 3.9 g/dL (3.9-5) 09/24/21 07:13 Albumin/Globulin Ratio 1.8 % 09/24/21 07:13 Triglycerides 117 mg/dL (2-149) 09/24/21 07:13 Cholesterol 140 mg/dL (50-199) 09/24/21 07:13 LDL Cholesterol Direct 53 mg/dL (50-130) 09/24/21 07:13 HDL Cholesterol 68 mg/dL (40-59) H 09/24/21 07:13 Cholesterol/HDL Ratio 2.05 % 09/24/21 07:13 TSH 0.751 mlU/mL (0.270-4.200) 09/24/21 07:13 Valproic Acid 73.2 ug/mL (50-100) 09/29/21 06:16 Hepatitis A IgM Ab Non-reactive (NonReactive) 09/24/21 07:13 Hep Bs Antigen Non-reactive (Negative) 09/24/21 07:13 Hep B Core IgM Ab Non-reactive (NonReactive) 09/24/21 07:13 Hepatitis C Antibody Non-reactive (NonReactive) 09/24/21 07:13 [place]/IV: Voiding Method Toilet Active Medications - Current Medications Current Medications: Generic Name Dose Route Start Last Admin Trade Name Freq PRN Reason Stop Dose Admin Albuterol 2.5 mg 09/23/21 12:00 Albuterol 2.5 Mg/3 Ml Nebu IH Q4HRT PRN Shortness Of Breath Albuterol 2.5 mg 09/25/21 12:00 09/29/21 08:50 Albuterol 2.5 Mg/3 Ml Nebu IH 2.5 mg BIDRT [facility] Administration Atorvastatin Calcium 40 mg 09/23/21 22:00 09/28/21 21:49 Atorvastatin 40 Mg Tab PO 40 mg QHS [facility] Administration Divalproex Sodium 500 mg 09/27/21 11:00 09/29/21 09:[address] 500 Mg Tab PO 500 mg BID [facility] Administration Haloperidol 10 mg 09/27/21 11:00 09/29/21 09:57 Haloperidol 5 Mg Tab PO Not Given BID [facility] Lisinopril 20 mg 09/23/21 10:00 09/29/21 09:52 Lisinopril 20 Mg Tab PO Not Given DAILY [facility] Metformin HCl 500 mg 09/23/21 10:00 09/29/21 16:57 Metformin 500 Mg Tab PO 500 mg BIDDIAB [facility] Administration Metoprolol Succinate 25 mg 09/23/21 10:00 09/29/21 09:52 Metoprolol Succinate Xl 25 Mg Tab PO Not Given QDAY [facility] Nicotine 21 mg 09/23/21 10:00 09/29/21 09:51 Nicotine 21 Mg/24 Hr Patch TD 21 mg QDAY [facility] Administration Pantoprazole Sodium 40 mg 09/23/21 10:00 09/29/21 09:51 Pantoprazole 40 Mg Tab PO 40 mg QDAY [facility] Administration Thyroid 30 mg 09/23/21 10:00 09/29/21 09:53 Thyroid,Porcine 60 Mg Tab PO 30 mg QDAY [facility] Administration
[2021-09-30 09:13] VITALS: BP 141/80
[2021-09-30] MEDS: DIVALPROEX DR 500 MG TAB PO SCH (09:13)
[2021-09-30] MEDS: metFORMIN 500 MG TAB PO SCH (09:13)
[2021-09-30] MEDS: LISINOPRIL 20 MG TAB PO SCH (09:13)
[2021-09-30] MEDS: PANTOPRAZOLE 40 MG TAB PO SCH (09:13)
[2021-09-30] MEDS: HALOPERIDOL 5 MG TAB PO SCH (09:14)
[2021-09-30] MEDS: THYROID,PORCINE 60 MG TAB PO SCH (09:15)
[2021-09-30] MEDS: METOPROLOL SUCCINATE XL 25 MG TAB PO SCH (09:15)
[2021-09-30] MEDS: NICOTINE 21 MG/24 HR PATCH TD SCH (09:16)
--- NOTE | 2021-09-30 10:35 | Progress Note ---
Subjective Date of service: 09/30/21 Principal diagnosis: Bipolar disorder, schizophrenia Medications and Allergies Allergies Allergy/AdvReac Type Severity Reaction Status Date / Time codeine Allergy Unknown Verified 09/23/21 01:27 morphine Allergy Unknown Verified 09/23/21 01:28 Penicillins Allergy Unknown Verified 09/23/21 01:27 Home Medications Medication Instructions Recorded Confirmed Last Taken Type Albuterol Mdi (or & Nicu Only) 2 puff IH QID PRN 09/23/21 09/23/21 Unknown History [ProAir HFA Inhaler] AtorvaSTATin [Lipitor] 40 mg PO QHS 09/23/21 09/23/21 Unknown History Metoprolol Xl [Metoprolol 25 mg PO QDAY 09/23/21 09/23/21 Unknown History SUCCINATE ER TAB] OLANZapine [Zyprexa] 5 mg PO BID 09/23/21 09/23/21 Unknown History Pantoprazole [Protonix] 40 mg PO QDAY 09/23/21 09/23/21 Unknown History Thyroid,Porcine [Thyroid] 30 mg PO QDAY 09/23/21 09/23/21 Unknown History lisinopriL [Lisinopril] 20 mg PO DAILY 09/23/21 09/23/21 Unknown History metFORMIN [Glucophage] 500 mg PO BID 09/23/21 09/23/21 Unknown History Active Meds: Active Medications Albuterol (Albuterol 2.5 Mg/3 Ml Nebu) 2.5 mg IH Q4HRT PRN PRN Reason: Shortness Of Breath Albuterol (Albuterol 2.5 Mg/3 Ml Nebu) 2.5 mg IH BIDRT [facility] Last Admin: 09/29/21 20:56 Dose: 2.5 mg Atorvastatin Calcium (Atorvastatin 40 Mg Tab) 40 mg PO QHS [facility] Last Admin: 09/29/21 21:16 Dose: 40 mg Divalproex Sodium (Divalproex Dr 500 Mg Tab) 500 mg PO BID [facility] Last Admin: 09/30/21 09:13 Dose: 500 mg Haloperidol (Haloperidol 5 Mg Tab) 10 mg PO BID [facility] Last Admin: 09/30/21 09:14 Dose: 10 mg Lisinopril (Lisinopril 20 Mg Tab) 20 mg PO DAILY [facility] Last Admin: 09/30/21 09:13 Dose: 20 mg Metformin HCl (Metformin 500 Mg Tab) 500 mg PO BIDDIAB [facility] Last Admin: 09/30/21 09:13 Dose: 500 mg Metoprolol Succinate (Metoprolol Succinate Xl 25 Mg Tab) 25 mg PO QDAY [facility] Last Admin: 09/30/21 09:15 Dose: 25 mg Nicotine (Nicotine 21 Mg/24 Hr Patch) 21 mg TD QDAY [facility] Last Admin: 09/30/21 09:16 Dose: 21 mg Pantoprazole Sodium (Pantoprazole 40 Mg Tab) 40 mg PO QDAY [facility] Last Admin: 09/30/21 09:13 Dose: 40 mg Thyroid (Thyroid,Porcine 60 Mg Tab) 30 mg PO QDAY [facility] Last Admin: 09/30/21 09:15 Dose: 30 mg Results - Results Labs/Vitals: Laboratory Last Values WBC 10.2 K/mm3 (4.5-11.0) 09/24/21 07:13 RBC 4.76 M/mm3 (3.65-5.03) 09/24/21 07:13 Hgb 13.1 gm/dl (10.1-14.3) 09/24/21 07:13 Hct 40.3 % (30.3-42.9) 09/24/21 07:13 MCV 85 fl (79-97) 09/24/21 07:13 MCH 28 pg (28-32) 09/24/21 07:13 MCHC 33 % (30-34) 09/24/21 07:13 RDW 13.8 % (13.2-15.2) 09/24/21 07:13 Plt Count 128 K/mm3 (140-440) L 09/24/21 07:13 Lymph % (Auto) 33.9 % (13.4-35.0) 09/24/21 07:13 [place] % (Auto) 6.3 % (0.0-7.3) 09/24/21 07:13 Eos % (Auto) 1.6 % (0.0-4.3) 09/24/21 07:13 Baso % (Auto) 0.3 % (0.0-1.8) 09/24/21 07:13 Lymph # (Auto) 3.5 K/mm3 (1.2-5.4) 09/24/21 07:13 [place] # (Auto) 0.6 K/mm3 (0.0-0.8) 09/24/21 07:13 Eos # (Auto) 0.2 K/mm3 (0.0-0.4) 09/24/21 07:13 Baso # (Auto) 0.0 K/mm3 (0.0-0.1) 09/24/21 07:13 Seg Neutrophils % 57.9 % (40.0-70.0) 09/24/21 07:13 Seg Neutrophils # 5.9 K/mm3 (1.8-7.7) 09/24/21 07:13 Sodium 139 mmol/L (137-145) 09/24/21 07:13 Potassium 4.5 mmol/L (3.6-5.0) 09/24/21 07:13 Chloride 105.7 mmol/L (98-107) 09/24/21 07:13 Carbon Dioxide 26 mmol/L (22-30) 09/24/21 07:13 Anion Gap 12 mmol/L 09/24/21 07:13 BUN 20 mg/dL (7-17) H 09/24/21 07:13 Creatinine 0.8 mg/dL (0.6-1.2) 09/24/21 07:13 Estimated GFR > 60 ml/min 09/24/21 07:13 BUN/Creatinine Ratio 25 % 09/24/21 07:13 Glucose 84 mg/dL (65-100) 09/24/21 07:13 POC Glucose 102 mg/dL (70-105) 09/24/21 06:42 Hemoglobin A1c 5.3 % (4-6) 09/24/21 07:13 Calcium 9.3 mg/dL (8.4-10.2) 09/24/21 07:13 Total Bilirubin < 0.20 mg/dL (0.1-1.2) 09/24/21 07:13 AST 17 units/L (5-40) 09/24/21 07:13 ALT 18 units/L (7-56) 09/24/21 07:13 Alkaline Phosphatase 119 units/L (35-129) 09/24/21 07:13 Total Protein 6.1 g/dL (6.3-8.2) L 09/24/21 07:13 Albumin 3.9 g/dL (3.9-5) 09/24/21 07:13 Albumin/Globulin Ratio 1.8 % 09/24/21 07:13 Triglycerides 117 mg/dL (2-149) 09/24/21 07:13 Cholesterol 140 mg/dL (50-199) 09/24/21 07:13 LDL Cholesterol Direct 53 mg/dL (50-130) 09/24/21 07:13 HDL Cholesterol 68 mg/dL (40-59) H 09/24/21 07:13 Cholesterol/HDL Ratio 2.05 % 09/24/21 07:13 TSH 0.751 mlU/mL (0.270-4.200) 09/24/21 07:13 Valproic Acid 73.2 ug/mL (50-100) 09/29/21 06:16 Hepatitis A IgM Ab Non-reactive (NonReactive) 09/24/21 07:13 Hep Bs Antigen Non-reactive (Negative) 09/24/21 07:13 Hep B Core IgM Ab Non-reactive (NonReactive) 09/24/21 07:13 Hepatitis C Antibody Non-reactive (NonReactive) 09/24/21 07:13 Last Vital Signs Temp 98.2 F 09/29/21 20:00 Pulse 81 09/30/21 09:15 Resp 18 09/29/21 21:01 BP 141/80 09/30/21 09:15 Pulse Ox 99 09/29/21 20:00
--- NOTE | 2021-09-30 10:41 | Discharge Summary ---
Providers - Providers Date of Admission: 09/23/21 01:24 Date of discharge: 09/30/21 Attending physician: ENA AYON MD 09/22/21 23:54 Consult to Physician [CONS] Routine Comment: Consulting Provider: DARIEN TIRADO Physician Instructions: Reason For Exam: new psych admit Primary care physician: OPTIMIZATION MANAGER Hospitalization Reason for admission: psychosis Admitting Diagnosis: F20.9 - SCHIZOPHRENIA, UNSPECIFIED Condition: Stable Hospital course: The patient was provided inpatient psychiatric treatment with safe and supportive environment, group/individual therapy, psychiatric medication, medication adjustment, adverse effect monitor, medical evaluation, medical treatment, social service assessment, social support meeting, placement assessment and psycho-education. The patients mood, cognition, behavior, motivation, compliance to treatment and appreciation on family/social support are improved and stabilized. At the time of discharge, the patient had no suicidal ideas, no homicidal ideas, no aggressive thoughts, no endangering behavior and no debilitating adverse effects. The patient agreed on the treatment plan, understood the risk, benefit, alternative treatment, potential consequence of no treatment, and gave informed consent. The patient was seen today. She is calm and cooperative. She says "I took the Haldol shot like yall said. I was told if I took it, I would go home." She says she slept good. The patient says "I slept so good, I was dreaming." She says she feels a lot better, but states "some times I feel like a knock in my head." She then taps my arm. She denies SI/HI. 09/29:The patient was seen this morning. She is calm today. She continues to present with flight of ideas. Denies si/hi 09/28:The patient was seen this morning. She continues have be responding to internal stimuli and labile. 09/27:The patient was seen in her room yelling. Start Haldol 10mg po BID. Plan to start Haldol DEC FRAZIER. Increase Depakote DR to 500mg po BID. Discontinue Zyprexa. 09/26: The patient was seen this morning. She continues to be labile and loud. The patient presents with flight of ideas. No changes made today. 09/25: The patient was seen this morning. She states she is doing well. The patient continues to be disorganized and responding to internal stimuli. Increased Zyprexa 10mg po BID, Start Depakote 250mg po BID 09/24: The patient was seen this morning. The patient continues to be disorganized and responding to internal stimuli. No changes made today. Disposition: 01 HOME / SELF CARE / HOMELESS Time spent for discharge: 35 Allergies/Adverse Reactions: Allergies codeine Allergy (Verified 09/23/21 01:27) Unknown morphine Allergy (Verified 09/23/21 01:28) Unknown Penicillins Allergy (Verified 09/23/21 01:27) Unknown Vital Signs: Last Vital Signs Temp 98.2 F 09/29/21 20:00 Pulse 81 09/30/21 09:15 Resp 18 09/29/21 21:01 BP 141/80 09/30/21 09:15 Pulse Ox 99 09/29/21 20:00 Last Lab: Laboratory Last Values WBC 10.2 K/mm3 (4.5-11.0) 09/24/21 07:13 RBC 4.76 M/mm3 (3.65-5.03) 09/24/21 07:13 Hgb 13.1 gm/dl (10.1-14.3) 09/24/21 07:13 Hct 40.3 % (30.3-42.9) 09/24/21 07:13 MCV 85 fl (79-97) 09/24/21 07:13 MCH 28 pg (28-32) 09/24/21 07:13 MCHC 33 % (30-34) 09/24/21 07:13 RDW 13.8 % (13.2-15.2) 09/24/21 07:13 Plt Count 128 K/mm3 (140-440) L 09/24/21 07:13 Lymph % (Auto) 33.9 % (13.4-35.0) 09/24/21 07:13 Mcnairy % (Auto) 6.3 % (0.0-7.3) 09/24/21 07:13 Eos % (Auto) 1.6 % (0.0-4.3) 09/24/21 07:13 Baso % (Auto) 0.3 % (0.0-1.8) 09/24/21 07:13 Lymph # (Auto) 3.5 K/mm3 (1.2-5.4) 09/24/21 07:13 Mcnairy # (Auto) 0.6 K/mm3 (0.0-0.8) 09/24/21 07:13 Eos # (Auto) 0.2 K/mm3 (0.0-0.4) 09/24/21 07:13 Baso # (Auto) 0.0 K/mm3 (0.0-0.1) 09/24/21 07:13 Seg Neutrophils % 57.9 % (40.0-70.0) 09/24/21 07:13 Seg Neutrophils # 5.9 K/mm3 (1.8-7.7) 09/24/21 07:13 Sodium 139 mmol/L (137-145) 09/24/21 07:13 Potassium 4.5 mmol/L (3.6-5.0) 09/24/21 07:13 Chloride 105.7 mmol/L (98-107) 09/24/21 07:13 Carbon Dioxide 26 mmol/L (22-30) 09/24/21 07:13 Anion Gap 12 mmol/L 09/24/21 07:13 BUN 20 mg/dL (7-17) H 09/24/21 07:13 Creatinine 0.8 mg/dL (0.6-1.2) 09/24/21 07:13 Estimated GFR > 60 ml/min 09/24/21 07:13 BUN/Creatinine Ratio 25 % 09/24/21 07:13 Glucose 84 mg/dL (65-100) 09/24/21 07:13 POC Glucose 102 mg/dL (70-105) 09/24/21 06:42 Hemoglobin A1c 5.3 % (4-6) 09/24/21 07:13 Calcium 9.3 mg/dL (8.4-10.2) 09/24/21 07:13 Total Bilirubin < 0.20 mg/dL (0.1-1.2) 09/24/21 07:13 AST 17 units/L (5-40) 09/24/21 07:13 ALT 18 units/L (7-56) 09/24/21 07:13 Alkaline Phosphatase 119 units/L (35-129) 09/24/21 07:13 Total Protein 6.1 g/dL (6.3-8.2) L 09/24/21 07:13 Albumin 3.9 g/dL (3.9-5) 09/24/21 07:13 Albumin/Globulin Ratio 1.8 % 09/24/21 07:13 Triglycerides 117 mg/dL (2-149) 09/24/21 07:13 Cholesterol 140 mg/dL (50-199) 09/24/21 07:13 LDL Cholesterol Direct 53 mg/dL (50-130) 09/24/21 07:13 HDL Cholesterol 68 mg/dL (40-59) H 09/24/21 07:13 Cholesterol/HDL Ratio 2.05 % 09/24/21 07:13 TSH 0.751 mlU/mL (0.270-4.200) 09/24/21 07:13 Valproic Acid 73.2 ug/mL (50-100) 09/29/21 06:16 Hepatitis A IgM Ab Non-reactive (NonReactive) 09/24/21 07:13 Hep Bs Antigen Non-reactive (Negative) 09/24/21 07:13 Hep B Core IgM Ab Non-reactive (NonReactive) 09/24/21 07:13 Hepatitis C Antibody Non-reactive (NonReactive) 09/24/21 07:13 Core Measure Documentation - Palliative Care Palliative Care/ Comfort Measures: Not Applicable - Core Measures Any of the following diagnoses?: none Exam - Constitutional Vitals: Temp Pulse Resp BP Pulse Ox 98.2 F 81 18 141/80 99 09/29/21 20:00 09/30/21 09:15 09/29/21 21:01 09/30/21 09:15 09/29/21 20:00 General appearance: Present: no acute distress - EENT Eyes: Present: PERRL, EOM intact ENT: hearing intact, clear oral mucosa - Neck Neck: Present: supple, normal ROM - Respiratory Respiratory effort: normal Plan Activity: advance as tolerated Weight Bearing Status: Weight Bear as Tolerated Care Plan Goals: Maintain good and stable mental health Plan of Treatment: The patient should be compliant with medications, not to use drugs and not to drink alcohol.The patient understands that if suicidal ideas, homicidal ideas, or any endangering thoughts/behavior arise, they should immediately seek for emergent assistance including but not limited to crisis hot line and emergency room. Follow up with outpatient Psychiatrist and PCP within 7 - 14 days of discharge. Assessment: Schizophrenia Follow up with: PRIMARY CARE, [Primary Care Provider] - 7 Days Prescriptions: Divalproex [Geovany Baptiste] 500 mg PO BID #60 tablet Nicotine [Habitrol] 21 mg TD QDAY #30 patch haloperidoL [Haldol] 10 mg PO BID #120 tablet
== END 2021-09-30 13:45 | disposition home or self-care (01) | DRG 885 ==
LOC: 3A 11:03 → UNDOADMIN 11:03 → 5A 09-23 01:24
PROVIDERS: ADMIT Psychiatry & Neurology Psychiatry; ATTEND Psychiatry & Neurology Psychiatry
DX: F20.9 Schizophrenia, unspecified (principal); K21.9 Gastro-esophageal reflux disease without esophagitis; F41.1 Generalized anxiety disorder; I10 Essential (primary) hypertension; Z88.5 Allergy status to narcotic agent; Z88.0 Allergy status to penicillin; Z82.49 Family history of ischemic heart disease and other diseases of the circulatory system
CPT/HCPCS: 36415; 80053; 80061; 80074; 80164; 82962; 83036; 84443; 85025; 94640; G0378; J1631; J3486

== ENCOUNTER 2021-10-01 00:57 | Emergency (ER) | payer MEDICAID ==
[2021-10-01 01:28] VITALS: BP 156/97
--- NOTE | 2021-10-01 11:05 | Emergency Department Report ---
ED Extremity Problem HPI - General Chief complaint: Extremity Injury, Lower Stated complaint: LEG PAIN Source: patient Mode of arrival: Ambulatory Limitations: No Limitations - History of Present Illness Initial comments: 56-year-old female complaining left leg pain x1 year. Patient is here requesting a boot. She denies any injury or trauma. No Obvious deformity noted no distracting injury noted. Patient is ambulatory. Patient is alert and oriented x3. No Acute distress noted. No ill appearance noted. Patient denies any pain at present time MD Complaint: extremity pain Onset/Timin -: year(s) Location: left Radiation: none Severity scale (0 -10): 5 Quality: aching Consistency: intermittent Improves with: nothing Worsens with: nothing Associated Symptoms: denies other symptoms - Related Data Home Medications Medication Instructions Recorded Confirmed Last Taken Albuterol Mdi (or & Nicu Only) 2 puff IH QID PRN 09/23/21 09/23/21 Unknown [ProAir HFA Inhaler] AtorvaSTATin [Lipitor] 40 mg PO QHS 09/23/21 09/23/21 Unknown Metoprolol Xl [Metoprolol 25 mg PO QDAY 09/23/21 09/23/21 Unknown SUCCINATE ER TAB] Pantoprazole [Protonix TAB] 40 mg PO QDAY 09/23/21 09/23/21 Unknown Thyroid,Porcine 30 mg PO QDAY 09/23/21 09/23/21 Unknown lisinopriL [Lisinopril] 20 mg PO DAILY 09/23/21 09/23/21 Unknown metFORMIN [Glucophage] 500 mg PO BID 09/23/21 09/23/21 Unknown Previous Rx's Medication Instructions Recorded Last Taken Type Divalproex Dr [Depakote Dr] 500 mg PO BID #60 tablet 09/30/21 Unknown Rx Nicotine [Habitrol] 21 mg TD QDAY #30 patch 09/30/21 Unknown Rx haloperidoL [Haldol] 10 mg PO BID #120 tablet 09/30/21 Unknown Rx Allergies Allergy/AdvReac Type Severity Reaction Status Date / Time codeine Allergy Unknown Verified 09/23/21 01:27 morphine Allergy Unknown Verified 09/23/21 01:28 Penicillins Allergy Unknown Verified 09/23/21 01:27 ED Review of Systems ROS: Stated complaint: LEG PAIN Other details as noted in HPI Constitutional: denies: chills, fever Eyes: denies: eye pain, eye discharge, vision change ENT: denies: ear pain, throat pain Respiratory: denies: cough, shortness of breath, wheezing Cardiovascular: denies: chest pain, palpitations Endocrine: no symptoms reported Gastrointestinal: denies: abdominal pain, nausea, diarrhea Genitourinary: denies: urgency, dysuria, discharge Musculoskeletal: denies: back pain, joint swelling, arthralgia Skin: denies: rash, lesions Neurological: denies: headache, weakness, paresthesias Psychiatric: denies: anxiety, depression Hematological/Lymphatic: denies: easy bleeding, easy bruising ED Past Medical Hx - Past Medical History Hx Congestive Heart Failure: No Hx Diabetes: Yes Hx Renal Disease: No Hx Arthritis: No Hx Seizures: No Hx Asthma: No Hx COPD: No Hx Dementia: No - Surgical History Hx Cholecystectomy: No Hx Appendectomy: No - Social History Smoking Status: Current Every Day Smoker - Medications Home Medications: Home Medications Medication Instructions Recorded Confirmed Last Taken Type Albuterol Mdi (or & Nicu Only) 2 puff IH QID PRN 09/23/21 09/23/21 Unknown History [ProAir HFA Inhaler] AtorvaSTATin [Lipitor] 40 mg PO QHS 09/23/21 09/23/21 Unknown History Metoprolol Xl [Metoprolol 25 mg PO QDAY 09/23/21 09/23/21 Unknown History SUCCINATE ER TAB] Pantoprazole [Protonix TAB] 40 mg PO QDAY 09/23/21 09/23/21 Unknown History Thyroid,Porcine 30 mg PO QDAY 09/23/21 09/23/21 Unknown History lisinopriL [Lisinopril] 20 mg PO DAILY 09/23/21 09/23/21 Unknown History metFORMIN [Glucophage] 500 mg PO BID 09/23/21 09/23/[address] [Depakote Dr] 500 mg PO BID #60 tablet 09/30/21 Unknown Rx Nicotine [Habitrol] 21 mg TD QDAY #30 patch 09/30/21 Unknown Rx haloperidoL [Haldol] 10 mg PO BID #120 tablet 09/30/21 Unknown Rx ED Physical Exam - General Limitations: No Limitations General appearance: alert, in no apparent distress - Head Head exam: Present: atraumatic, normocephalic - Eye Eye exam: Present: normal appearance - ENT ENT exam: Present: mucous membranes moist - Neck Neck exam: Present: normal inspection - Respiratory Respiratory exam: Present: normal lung sounds bilaterally. Absent: respiratory distress - Cardiovascular Cardiovascular Exam: Present: regular rate, normal rhythm. Absent: systolic murmur, diastolic murmur, rubs, gallop - GI/Abdominal GI/Abdominal exam: Present: soft, normal bowel sounds - Extremities Exam Extremities exam: Present: normal inspection - Back Exam Back exam: Present: normal inspection - Neurological Exam Neurological exam: Present: alert, oriented X3 - Psychiatric Psychiatric exam: Present: normal affect, normal mood - Skin Skin exam: Present: warm, dry, intact, normal color. Absent: rash ED Course Vital Signs 10/01/21 10/01/21 01:14 11:12 Temperature 98.2 F 98.2 F Pulse Rate 74 74 Respiratory 18 16 Rate Blood Pressure 156/97 O2 Sat by Pulse 98 100 Oximetry ED Medical Decision Making - Medical Decision Making 56-year-old female complaining left leg pain x1 year. Patient is here requesting a boot. She denies any injury or trauma. No Obvious deformity noted no distracting injury noted. Patient is ambulatory. Patient is alert and oriented x3. No Acute distress noted. No ill appearance noted. Patient denies any pain at present time. Rechecked the patient is resting quietly quietly and comfortable and feeling better. I discussed the results of diagnostic study, my clinical impression and the plan for further treatment with the patient. Patient agrees with plan and discharge at this present time. All question addressed. I have given the patient instruction regarding a diagnosis ,expectation ,follow- up and return precaution. I explained to the patient that emergent condition may arise and to return to the ED for new worsen and any new persisting condition. I have explained the importance of following up with the primary care physician or referral physician listed below has instructed. The patient verbalized understanding of discharge instruction. Critical care attestation.: If time is entered above; I have spent that time in minutes in the direct care of this critically ill patient, excluding procedure time. ED Disposition Clinical Impression: Leg pain Qualifiers: Laterality: left Qualified Code(s): M79.605 - Pain in left leg Disposition: HOME / SELF CARE / HOMELESS Is pt being admited?: No Does the pt Need Aspirin: No Condition: Stable Instructions: Musculoskeletal Pain, How to Use Cold Therapy Additional Instructions: Return to ED for any worsening symptoms Referrals: PRIMARY CAREMD [Primary Care Provider] - 3-5 Days BEVERLEY WEEKS MD [Staff Physician] - 3-5 Days Time of Disposition: 11:04
== END 2021-10-01 11:12 | disposition home or self-care (01) ==
LOC: ED 00:57
DX: M79.605 Pain in left leg (principal); E11.9 Type 2 diabetes mellitus without complications; F17.200 Nicotine dependence, unspecified, uncomplicated; Z88.0 Allergy status to penicillin; Z91.09 Other allergy status, other than to drugs and biological substances; Z79.899 Other long term (current) drug therapy
CPT/HCPCS: 99282